=== PATIENT | male | born 1965 | race Caucasian/White ===

== ENCOUNTER 2020-07-09 09:50 | Emergency (ER) | payer BC ==
--- OUTSIDE RECORDS SUMMARY | 2020-07-09 09:53 | XMS REPORT | Continuity of Care Document ---
:1965 Author Organization [facility] [employer]is [employer] Care Team Providers Name Role Phone [facility] [employer]ASC[employer] Unavailable Un available Problems Problem Status Onset Classification Date Comments Sour e Date Reported R07.9 - "CHEST PAIN, Active OPID Kamilla UNSPECIFIED" R10.9 020 Syncope and collapse [place] [id number] City POSSIBLE STROKE Active [facility] [address] [place] [address] M25.561 - PAIN IN RIGHT Active OPID Kamilla KNEE 018 Rehab J98.09 - OTHER DISEASES Active OPID OF [place], NO 018 [place] 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 OPID Kamilla THYROID NODULE 015 648.10 - THYROID DYSFUN Active OPID Kamilla 015 Rehab 786.2/493.2 Active Kamilla 015 Hospital Adverse effect of Active Problem [place] otorhinolaryngological 8 Allergy & drugs and preparations, Asthma sequela Allergic rhinitis, Active Problem [place] unspecified 8 Allergy & Asthma Acute bronchitis due to Active Problem [place] other specified 8 Jatin rgy & organisms Asthma Cough Active Problem [place] d 8 Allergy & Asthma Foreign body in soft Active Problem [place] tissue 5 [facility] Pain Active Problem [place] [facility] Abscess/cellulitis-foot Active Problem [place] 5 [facility] Palpitations Isaac rial 9 City Generalized Memor ial hyperhidrosis 9 City Nausea Memoria l 9 City Dizziness and giddiness [facility] 9 City Pure Memoria l hypercholesterolemia, 9 City unspecified Allergy status to [facility] penicillin 9 City Allergy status to [facility] narcotic agent status 9 [facility] Medications Medication Details Route Status Patient Ordering Order Source Instructions Provider Date Sodium 1,000 mL, Inactive Chloride 0.9% 1000 019 [facility] ([place]) IV ml/hr, [facility] Infuse Over: 1 hr, Route: IV, 1,000, Drug form: INJ, ONCE, Priority: STAT, Dosing Weight 96.364 kg, Start date: 12/25/18 0:46:00 PRODUCTION TEAM MEMBER, Stop date: 12/25/18 0:46:00 PRODUCTION TEAM MEMBER Allergies, Adverse Reactions, Alerts Substance Category Reaction Severity Reaction Status Date Comments S ource type Reported codeine Assertion Drug Active OPI D allergy Kamilla penicillins Assertion Drug Active OPID allergy Kamilla Immunizations No Data Provided for This Section Results Order Name Results Value Reference Date Interpretation Comments Shannan rce Range CARDIAC Total CK 139 12 - 191 12/25 ENZYMES [facility] CARDIAC CK MB 1.4 0.5 - 3.6 12/25 ENZYMES [facility] CARDIAC Troponin-I <0.02 0.00 - 12/25 ENZYMES 0.40 /2018 [facility] CARDIAC CK MB Index 1.0 0.0 - 2.5 12/25 ENZYMES [facility] CHEM PANEL eGFR 56 12/25 Result Comment: The [facility] eGFR is City calculated using the CKD-EPI formula. In most young, healthy individuals the eGFR will be >90 mL/min/1.73m2 . The eGFR declines with age. An eGFR of 60-89 may be normal in some populations, particularly the elderly, for whom the CKD-EPI formula has not been extensively validated. Use of the eGFR is not recommended in the following populations:< br/>
Jennifer viduals with unstable creatinine concentration s, including patients and those with serious co-morbid conditions.<b r/>
Patie nts with extremes in muscle mass or diet.

The data above are obtained from the National Kidney Disease Education Program (NKDEP) which additionally recommends that when the eGFR is used in patients with extremes of body mass index for purposes of drug dosing, the eGFR should be multiplied by the estimated BMI. CHEM PANEL B/C Ratio 12 6 - 25 12/25 [facility] CHEM PANEL ALT 66 0 - 65 02/ [facility] CHEM PANEL Creatinine 1.43 0.50 - 02/04 MH Lvl 1.40 /2019 [facility] CHEM PANEL Glucose Lvl 117 70 - 99 02 [facility] CHEM PANEL BUN 17 7 - 22 02/ [facility] CHEM PANEL CO2 24 24 - 32 02/ [facility] CHEM PANEL Albumin Lvl 4.2 3.5 - 5.0 02 [facility] CHEM PANEL AGAP 14.3 10.0 - 02 20.0 [facility] CHEM PANEL Alk Phos 62 39 - 136 02 [facility] CHEM PANEL AST 33 0 - 37 02 [facility] CHEM PANEL A/G Ratio 1.2 0.7 - 1.6 12/25 [facility] CHEM PANEL Bili Total 0.6 0.2 - 1.3 12/25 [facility] CHEM PANEL Globulin 3.6 2.7 - 4.2 12/25 [facility] CHEM PANEL Total 7.8 6.4 - 8.4 12/25 [facility] CHEM PANEL Sodium Lvl 140 135 - 145 02 [facility] CHEM PANEL Chloride Lvl 106 95 - 109 02 [facility] CHEM PANEL Potassium 4.3 3.5 - 5.1 12/25 Lv [facility] CHEM PANEL Calcium Lvl 9.2 8.5 - 10.5 12/25 [facility] ELECTROLYTE Sodium Lvl 140 135 - 145 02 S [facility] ELECTROLYTE Potassium 4.3 3.5 - 5.1 02 S Lv [facility] ELECTROLYTE Chloride Lvl 106 95 - 109 02 S [facility] ELECTROLYTE Calcium Lvl 9.2 8.5 - 10.5 12/25 S [facility] ELECTROLYTE BUN 17 7 - 22 02/ S [facility] ELECTROLYTE CO2 24 24 - 32 02/ [facility] ELECTROLYTE Albumin Lvl 4.2 3.5 - 5.0 02 S [facility] ELECTROLYTE AGAP 14.3 10.0 - 02/04 S 20. [facility] ELECTROLYTE Glucose Lvl 117 70 - 99 02/ [facility] ELECTROLYTE AST 33 0 - 37 12/25 [facility] ELECTROLYTE Creatinine 1.43 0.50 - 02 MH S Lvl 1.40 /2018 [facility] ELECTROLYTE ALT 66 0 - 65 12/25 [facility] ELECTROLYTE B/C Ratio 12 6 - 25 12/25 [facility] ELECTROLYTE eGFR 56 12/25 Result Comment: The [facility] eGFR is City calculated using the CKD-EPI formula. In most young, healthy individuals the eGFR will be >90 mL/min/1.73m2 . The eGFR declines with age. An eGFR of 60-89 may be normal in some populations, particularly the elderly, for whom the CKD-EPI formula has not been extensively validated. Use of the eGFR is not recommended in the following populations:< br/>
Jennifer viduals with unstable creatinine concentration s, including patients and those with serious co-morbid conditions.<b r/>
Patie nts with extremes in muscle mass or diet.

The data above are obtained from the National Kidney Disease Education Program (NKDEP) which additionally recommends that when the eGFR is used in patients with extremes of body mass index for purposes of drug dosing, the eGFR should be multiplied by the estimated BMI. ELECTROLYTE Total 7.8 6.4 - 8.4 / MH S [facility] ELECTROLYTE Bili Total 0.6 0.2 - 1.3 12/25 [facility] ELECTROLYTE Globulin 3.6 2.7 - 4.2 12/25 [facility] ELECTROLYTE A/G Ratio 1.2 0.7 - 1.6 12/25 [facility] ELECTROLYTE Alk Phos 62 39 - 136 12/25 [facility] HEMATOLOGY MPV 7.7 7.4 - 10.4 12/25 [facility] HEMATOLOGY MCH 30.5 27.0 - 02/ MH 31.0 [facility] HEMATOLOGY MCHC 35.0 32.0 - 02/ MH 36.0 [facility] HEMATOLOGY RDW 13.2 11.5 - 02/ MH 14.5 [facility] HEMATOLOGY Platelet 209 133 - 450 12/25 [facility] HEMATOLOGY WBC 12.4 3.7 - 10.4 12/25 [facility] HEMATOLOGY RBC 5.43 4.70 - 02 MH 6.10 /2018 [facility] HEMATOLOGY Hgb 16.6 14.0 - 02 MH 18.0 /2018 [facility] HEMATOLOGY Hct 47.3 42.0 - 02 MH 54.0 /2018 [facility] HEMATOLOGY MCV 87.1 80.0 - 02 MH 94.0 /2018 [facility] HEMATOLOGY Lymphocytes 1.2 1.0 - 5.5 12/25 MH # /2019 [facility] HEMATOLOGY Monocytes # 0.5 0.0 - 0.8 12/25 [facility] HEMATOLOGY Basophils # 0.1 0.0 - 0.2 12/25 [facility] HEMATOLOGY Segs 85.4 45.0 - 02 MH 75.0 /2018 [facility] HEMATOLOGY Monocytes 4.0 2.0 - 12.0 12/25 [facility] HEMATOLOGY Eosinophils 0.2 0.0 - 4.0 12/25 [facility] HEMATOLOGY Basophils 0.4 0.0 - 1.0 12/25 [facility] HEMATOLOGY Neutrophils 10.6 1.5 - 8.1 12/25 # /2018 [facility] HEMATOLOGY Lymphocytes 10.0 20.0 - 12/25 MH 40.0 [facility] URINE AND UA Ketones Negative 12/25 STOOL [facility] URINE AND UA Spec Grav 1.023 <=1.030 12/25 STOOL /2018 [facility] URINE AND UA pH 5.0 5.0 - 8.0 12/25 STOOL /2018 [facility] URINE AND UA Protein Negative Negative 12/25 STOOL (12/25/18 12:30 AM) /2018 [facility] URINE AND UA Turbidity Clear Clear 12/25 STOOL (12/25/18 12:30 AM) /2018 [facility] URINE AND UA Glucose Negative Negative 12/25 STOOL *NA* /2018 [facility] (12/25/18 12:30 AM) [facility] URINE AND UA Bacteria Occasional None Seen 12/25 STOOL /HPF /HPF /2018 [facility] URINE AND UA WBC 3 0 - 5 12/25 STOOL /2018 [facility] URINE AND UA RBC 1 0 - 2 12/25 STOOL /2018 [facility] URINE AND UA Sq Epi Occasional Few /LPF 12/25 STOOL /LPF /2018 [facility] URINE AND UA Nitrite Negative Negative 12/25 STOOL (12/25/18 12:30 AM) [facility] URINE AND UA Bili Negative Negative 12/25 STOOL *NA* [facility] (12/25/18 12:30 AM) [facility] URINE AND UA Blood Small Negative 12/25 STOOL *ABN* /2018 [facility] (12/25/18 12:30 AM) [facility] URINE AND UA Leuk Est Negative Negative 12/25 STOOL (12/25/18 12:30 AM) [facility] URINE AND UA <=1.0 0.1 - 1.0 12/25 STOOL Urobilinogen mg/dL /2018 [facility] URINE AND UA Mucus Moderate None Seen 12/25 STOOL /LPF /LPF /2018 [facility] URINE AND UA Hyal Cast 18 0 - 2 12/25 STOOL /2018 [facility] URINE AND UA Color Yellow Yellow 12/25 STOOL *NA* /2018 [facility] (12/25/18 12:30 AM) [facility] Pathology Reports No Data Provided for This Section Diagnostic Reports Report Value Date Source Chest/Abd/Pel w IV Radiation Dose CTDIVOL = 0 (mGy): DLP = 1638.81 (mGy-cm) 05/21/2020 OPIHina Kamilla contrast/Abd wo CT PROCEDURE INFORMATION: Exam: CT Chest With Contrast Exam date and time: 05/21/2020 4:02 PM Age: 54 years old Clinical indication: Chest pain, unspecified; Un specified abdominal pain; Additional info: R07.9 r10.9/. TECHNIQUE: Imaging protocol: Computed tomography of the [address]ard st with intravenous contrast. Radiation optimization: All CT scans at this facility use at least one of these dose optimization techniques: automated exposure control; mA and/or kV adjustment per patient size (includes targeted e xams where dose is matched to clinical indication); or iterative reconstructio n. Contrast material: OMNI 300; Contrast volume: 10 0 ml; Contrast route: INTRAVENOUS (IV); Other contrast: Oral, OMNI 300, 50; COMPARISON: CHEST W CONTRAST CT 04/12/2019 9:45 AM RADIATION DOSE METRICS: Total DLP (mGy-cm): 1638.81 FINDINGS: Lungs: Emphysema with minor scarring. No mass or pneumonia. No bronchiectasis or endobronchial obstructing lesion. Pleural space: No pleural effusion. Heart: Heart normal. No pericardial effusion. Aorta: Aorta normal. Lymph nodes: No hilar, mediastinal or axillary a denopathy. Bones/joints: Unremarkable skeleton. Soft tissues: Unremarkable. PROCEDURE INFORMATION: Exam: CT Abdomen And Pelvis Without And With Con trast Exam date and time: 05/21/2020 4:02 PM Age: 54 years old Clinical indication: Chest pain, unspecified; Un specified abdominal pain; Additional info: R07.9 r10.9/. TECHNIQUE: Imaging protocol: Computed tomography of the abd omen and pelvis without and with intravenous contrast. Radiation optimization: All CT scans at this facility use at least one of these dose optimization techniques: automated exposure control; mA and/or kV adjustment per patient size (includes targeted e xams where dose is matched to clinical indication); or iterative reconstructio n. Contrast material: OMNI 300; Contrast volume: 10 0 ml; Contrast route: INTRAVENOUS (IV); Other contrast: Oral, OMNI 300, 50; COMPARISON: CT abdomen 04/24/2019 RADIATION DOSE METRICS: Total DLP (mGy-cm): 1638.81 FINDINGS: Liver: Mild fatty liver. Gallbladder and bile ducts: Gallbladder and comm on duct normal. Pancreas: Pancreas normal. Spleen: Spleen normal. Adrenals: Adrenals normal. Kidneys and ureters: No renal mass, calculus, hy dronephrosis or perinephric stranding. Stomach and bowel: Colonic diverticulosis. Moder ate colonic fecal material. Appendix: Appendix normal. Intraperitoneal space: No ascites. Vasculature: Unremarkable. Lymph nodes: No adenopathy. Bladder: Unremarkable urinary bladder. Reproductive: Enlarged prostate with bladder bas e impingement. Bones/joints: Minor spondylosis. Soft tissues: Small fat containing umbilical her juhi. Bilateral fat containing umbilical hernias. IMPRESSION: CT Chest With Contrast 1. No acute abnormality. 2. Emphysema with minor scarring. CT Abdomen And Pelvis Without And With Contrast 1. No acute abnormality. 2. Fatty liver. 3. Colonic diverticulosis, moderate colonic feca l material. 4. Enlarged prostate with bladder base impingeme nt. 5. Bilateral fat containing umbilical hernias. Darrin Luna MD On 05/23/2020 18:33:58; VR- [id number] Retroperitoneal Complete Addendum: 04/12/2019 MARISA Kohli US The tiny left renal cysts no roselia on this ultrasound correlates well with the small left renal cyst noted on today's CT. Frequently very small renal cysts found on CT are not visualized at ultrasound. I concur with the initial interpretation of this exam. PROCEDURE: RENAL ULTRASOUND INDICATION: Left flank pain. COMPARISON: None. TECHNIQUE: Sonographic evaluation of the kidneys and urinar y bladder was performed. FINDINGS: KIDNEYS: The right kidney measures 10.6 cm in length. Normal contour and parenchym al echogenicity. There is no hydronephrosis, nephrolithiasis, mass lesion or perinephric collection. The left kidney measures 10.7 cm in length. Normal contour and parenchym al echogenicity. There is no hydronephrosis, nephrolithiasis, mass lesion or perinephric collection. Small left renal cysts measuring 0.8 cm and 0.5 cm. BLADDER: Unremarkable. The prostate measures 4.2 x 3.8 x 3.7 cm. VASCULAR: The visualized abd ominal aorta, IVC and proximal common iliac arteries are within normal limits. IMPRESSION: 1. Tiny left renal cysts. Ot herwise unremarkable sonographic appearance of the kidneys. 2. Mildly enlarged prostate SL: [id number] Chest w contrast CT ADDENDUM: 04/12/2019 MARISA Kohli I have reviewed this examina tion and concur with the interpretation. The appearance clear lung bases on today's CT chest confirms that the appearance of the lung bases on 03/29/2019 CT abdomen were due to mild dependent a telectasis which is a common finding on CT is otherwise the chest or abdomen performed in the supine position. Chest CT with contrast: Multiplanar helical imaging was performed through the chest after IV injection 100 mL Omnipaque 300. HISTORY: Chest pain, short of breath. COMPARISON: Chest CT 06/01/2017. FINDINGS: Normal caliber tho racic aorta without an aneurysm. No mediastinal or hilar adenopathy. Limited images through the upper aspect of the abdomen are unremarkable. There is no central airway narro wing or displacement. Both l ungs are clear. No infiltrate, pleural effusion or pneumothorax. No lung mass or nodule. Bone window review shows no acute bony pathology . No vertebral compression. IMPRESSION: No acute finding SL: [id number] Abd Liver Protocol w/wo IV Addendum: 03/29/2019 OP ID Kamilla contrast CT The 03/29/2019. Postcontrast CT abdomen was reviewed. I feel the liver is normal in appearance without definitive evidence for hepatic steatosis on CT. In addition the subtle increased density dependent ly in both lower lobes is mo st likely related to very mild dependent atelectasis which is frequently seen on CTs performed with the patient in supine position. Otherwise I concur with the initial report. EXAM: CT abdomen liver protocol HISTORY: Elevated liver enzymes COMPARISON: CT 06/01/2017 TECHNIQUE: Axial images with out and with IV contrast. Sagittal coronal reformats. 100 mL Visipaque IV contrast and 900 mL water oral contrast. DLP 1756 CT imaging performed at this location utilizes radiation dose optimization techniques which include one or more of the following: -Automated exposure control -Adjustment of the mA and/or kV according to pat ient size -Use of iterative reconstruction technique FINDINGS: Liver: Mild-moderate fatty c hange. No appreciable cirrhosis or mass. The main portal vein measures 17 mm diameter. No portosystemic collateral vessels are seen. Spleen: Upper normal size. Pancreas: Unremarkable. Kidneys: Few tiny hypodensit ies in the left kidney. The right kidney is unremarkable. Adrenal glands: Unremarkable. Gallbladder: No appreciable gallstone. No biliar y dilation. Peritoneum and retroperitoneum: No enlarged lymp h nodes. No free fluid. Gastrointestinal tract: Smal l hiatal hernia. Diverticula descending colon without diverticulitis. Tiny fat-containing umbilical hernia. Other: Stable subpleural mil d interstitial groundglass opacities posterior lower lungs. Generalized osteopenia. Mild spondylosis thoracolumbar spine. IMPRESSION: 1. Fatty liver with mild portal hypertension. 2. Several small lesions lef t kidney may be cysts. Renal ultrasound can confirm. 3. Possible scarring or an interstitial pneumoni a lower lungs, stable. SL 16 Thyroid US Clinical Indication: E04.1 Nontoxic si ngle thyroid nodule - .. 02/26/2019 ANGELICD Kamilla Comparison: 06/01/2017. TECHNIQUE: Multiplanar nina chanelle and color Doppler ultrasound of the neck were obtained in the area of the thyroid. FINDINGS: Thyroid parenchyma: Mildly heterogeneous Size: Right thyroid: 4.8 x 2.1 x 2 cm Left thyroid: 5 x 1.8 x 1.6 cm Isthmus thickness: 0.3 cm Thyroid nodules: There are s ub-5 mm cyst of the thyroid and a 5 mm calcification which are unchanged from previous exam and do not meet imaging criteria for consideration of follow-up or biopsy. Cervical lymph nodes: Normal. IMPRESSION: 1. Mildly heterogeneous gland 2. Thyroid nodule(s) detailed above do(es) not meet MILLY criteria for FNA. REFERENCE: Pedro MONTOYA et al. 2015 [place] Thyroid Association Management Guidelines for Adult Patients with Thyroid Nodules and Differentiated Thyroid Cancer. Thyroid. 2016; 26(1):1-133. SL: ECROBERT Chest 2 views DX PA and lateral views chest 12/25/2018 [facility] INDICATION: Syncope COMPARISON: none FINDINGS: Heart/mediastinum: normal LUNGS: clear without infiltrate or effusion Bone structures: There are postoperative finding s of the cervical spine. Upper abdomen: unremarkable Incidental findings: none IMPRESSION: Normal chest radiographs. Brain wo contrast CT Brain wo contrast CT 12/24/2018 9:01 PM PRODUCTION TEAM MEMBER 0 12/24/2018 [facility] Clinical Indication: - syncope; COMPARISON: None TECHNIQUE: Axial CT images o f the brain are obtained from the skull base to the vertex. Axial, sagittal, and coronal images are interpreted. Contrast: No IV contrast. DLP: 683 mGy-cm. This exam w as performed according to our departmental dose- optimization protocol, which includes automated exposure control, adjustment of the mA and/or kV according to patient size and/or use of iterative reconstruction technique. FINDINGS: BRAIN: There is no evidence of cerebral edema, mass, mass effect, hemorrhage, recent cortical infarct. The brain volume is age appropriate. The olivo-white distinction is maintained. SKULL: No skull abnormality is seen. VENTRICLES: The ventricles are normal in size an d configuration. ORBITS, VISUALIZED PARANASAL SINUSES AND MASTOIDS: Mild mucosal thickening in the sphenoid sinus and bilateral ethmoid sinus is consistent with sinusitis. The remainder of the visualized paranasal sinus es appear unremarkable. The mastoid air cells are clear. No orbital pathology is seen. IMPRESSION: 1. No acute intracranial abnormality identified. 2. Mild mucosal thickening i n sphenoid sinus and bilateral ethmoid sinus is consistent with sinusitis. Otherwise unremarkable examination. Chest/Abd/Pelvis w/wo IV CT CHEST ABDOMEN AND PELVIS WITH CONTRA ST 06/01/[address] ABDOMEN AND PELVIS WITHOUT CONTRAST. Clinical Indication: Mid and right chest pain and right upper and lower quadrant abdominal pelvic pain for 2 years. Shortness of breath. Comparison: 09/10/2015 CT abdomen pelvis. [address] TECHNIQUE: Helical imaging w as performed from the T1/ lung apices through the pubic symphysis with multiplanar reconstructions. IV CONTRAST: 100 mL Omnipaque 300 GI CONTRAST: 900 mL 5% Omnipaque DLP: 1325 mGy-cm FINDINGS: CHEST: MEDIASTINUM: No mediastinal lymphadenopathy. Trachea and mainstem bronchi are free of masses. Tiny hiatal hernia suspected. HEART AND AORTA: Heart is no rmal in size without pericardial effusion. Thoracic aorta is normal in caliber. LUNGS AND PLEURA: Minimal de pendent changes likely represent atelectasis. Lungs are otherwise clear. No pleural effusions. MUSCULOSKELETAL: No suspicious osseous abnormali ties. ABDOMEN: PERITONEUM: No free intraperitoneal air or fluid . RETROPERITONEUM: Abdominal a frederick is normal in caliber. Subcentimeter short axis lymph nodes present. SOLID ORGANS: The liver, gal lbladder, spleen, pancreas, adrenal glands and kidneys are normal. PELVIS: Bladder is filled with fluid. Prostate m easures 5.3 cm diameter. BOWEL: No abnormally dilated small or large bowel loops. Diverticulosis present. Appendix is normal. MUSCULOSKELETAL: Fat-contain ing inguinal hernias, right greater than left. Fat- containing umbilical hernia. Mild deformity of right iliac bone likely from old fracture and stable. IMPRESSION: 1. No acute findings in the chest, abdomen, or p pb. 2. Diverticulosis. 3. Prominent prostate gland. 4. Tiny hiatal hernia. 5. Fat-containing umbilical hernia and bilateral inguinal hernias. SL: [id number] Thyroid US PROCEDURE: 06/01/2017 MARISA Kohli Thyroid ultrasound. INDICATION: E04.1 Nontoxic single thyroid nodu le. Stomach pain. COMPARISON: Thyroid ultrasound dated 09/04/2015. TECHNIQUE: Sonographic evalu ation of the thyroid gland is performed using high resolution B-mode and supplemental Doppler imaging. FINDINGS: The isthmus measures 3 mm in thickness at the mi dline. Hypoechoic cyst within the l eft lobe measures 4 mm x 4 mm x 2 mm. This appears new. Cyst identified within the m idline isthmus measures 4 mm x 3 mm x 2 mm. This previously measured 5 mm x 4 mm x 2 mm in August 2015. The right lobe measures 4.6 cm x 2.4 cm x 2.1 cm . The left lobe measures 5.0 cm x 1.9 cm x 1.6 cm. Heterogeneous echogenic nodu le within the posterior superior left lobe measures 6 mm x 5 mm x 4 mm. This previously measured 5 mm x 5 mm x 5 mm in August 2015. IMPRESSION: 1. Stable uninodular goiter. No dominant nodule . 2. Cyst within the thyroid isthmus. SL: [id number] Abdomen/Pelvis w/wo IV PROCEDURE: CT ABDOMEN AND PE LVIS WITH AND WITHOUT CONTRAST 09/10/2015 JOSE J Kohli [facility] contrast CT INDICATION: Inguinal adenopa thy. Acute lymphadenitis. Painful right side groin. COMPARISON: None. TECHNIQUE: Helical imaging w as performed from the diaphragm through the pubic symphysis with multiplanar reconstruction. Imaging was performed with and without the administration of IV contrast. Intravenous contrast: 100ml Omnipaque 300 Oral contrast: Omnipaque 50 cc was utilized for a portion of the oral contrast. FINDINGS: LOWER CHEST: Atelectasis seen in the lung bases. SOLID ORGANS: The liver, gal lbladder, spleen, pancreas, adrenal glands and kidneys are normal. BOWEL: A few colonic diverti cula present. Appendix is visualized and appears normal. No inflammatory changes of the GI tract seen. PERITONEUM: No free intraperitoneal fluid or air . RETROPERITONEUM: No adenopathy. The aorta is nor mal. PELVIS: No pelvic mass. The urinary bladder is normal. There are small nonspecific bilateral inguinal and pelvic lymph nodes. No dominant lymph node seen. MUSCULOSKELETAL: The skeleton is intact. IMPRESSION: 1. No acute findings identified. 2. No adenopathy seen. A few nonspecific small bilateral inguinal and pelvic lymph nodes present. 3. Several colonic diverticula present. SL: 03 Thyroid US PROCEDURE: THYROID ULTRASOUND 09/04/2015 JOSE J Kohli INDICATION: Thyroid goiter. Thyroid nodules. COMPARISON: 01/18/2014 TECHNIQUE: Sonographic evalu ation of the thyroid gland was performed using high resolution B-mode and supplemental Doppler imaging. FINDINGS: The right lobe measures 4.9 x 2.6 x 2.2 cm. The left lobe measures 5.2 x 2.2 x 1.7 cm. The isthmus is normal. The right and left lobes are normal in contour a nd echogenicity. 0.5 x 0.5 x 0.5 cm echogenic area in the inferior left thyroid is unchanged. Small cystic area is identified superior to the isthmus which are unchanged. IMPRESSION: Unchanged appearance of uninodular t hyroid SL 03 Consultation Notes No Data Provided for This Section Discharge Summaries No Data Provided for This Section History and Physicals No Data Provided for This Section Vital Signs Vital Sign Value Date Comments Source Temperature Oral (F) 98.2 F 12/25/2018 [facility] Heart Rate 88 12/25/2018 [facility] Respitory Rate 16 12/25/2018 [facility]y Systolic (mm Hg) 119 12/25/2018 [facility] Diastolic (mm Hg) 79 12/25/2018 [facility] Heart Rate 81 12/25/2018 [facility] Systolic (mm Hg) 106 12/25/2018 [facility] Diastolic (mm Hg) 64 12/25/2018 [facility] Respitory Rate 18 12/25/2018 [facility] C [facility]y Systolic (mm Hg) 111 12/25/2018 [facility] Diastolic (mm Hg) 71 12/25/2018 [facility] Heart Rate 87 12/25/2018 [facility] Respitory Rate 18 12/25/2018 [facility] ity Weight 96.364 12/25/2018 [facility] Temperature Oral (F) 99.5 F 12/25/2018 [facility] Height 185.42 cm 01/02/2015 [facility] BMI Calculated 31.07 01/02/2015 [facility] Weight 106.818 01/02/2015 [facility] Encounters Location Location Encounter Encounter Reason Attending ADM DC Stat us Source Details Type Number For Provider Date Date Visit [facility] Outpt Diag [id number] Consuelo Garcia 01/01 01/02 [facility]2014 [facility] Outpatient [id number] Consuelo Garcia 01/02 01/03 [facility] Esipnoza /2014 [facility] PT: [id number] 05/19 05/19 [facility] [id number] /2014 [facility] [id number] P [facility]diatry [facility] [place] [facility] RT FT & [id number] 05/20 05/20 [facility] KNEE [id number] /2014 [facility] SCHEDULED [id number] Podiatry [facility] Outpt Diag [id number] [facility] 09/04 09/05 [facility] [id number] [facility] 06/01 06/02 [facility] [id number] [facility] 07/10 07/10 [facility] [id number] [facility] 12/25 12/25 [facility] [id number] [facility] 02/26 02/27 [facility] [id number] [facility] 03/29 03/30 [facility] [id number] [facility] 04/12 04/13 [facility] [id number] [facility] 05/21 05/22 [facility] Procedures No Data Provided for This Section Assessment and Plan No Data Provided for This Section Plan of Care No Data Provided for This Section Social History Social History Date Source Social History TypeResponse 12/25/2018 [facility] Alcohol Current, Type Wine. Frequency: 1-2 times per month. Smoking Status Never smoker; Exposure to Tobacco Smoke None; Cigarette Smoking Last 365 Days No; Reg Smoking Cessation Counseling No entered on: 12/25/18 Social History TypeResponse 12/25/2018 [facility] Alcohol Current, Type Wine. Frequency: 1-2 times per month. Smoking Status Never smoker; Exposure to Tobacco Smoke None; Cigarette Smoking Last 365 Days No; Reg Smoking Cessation Counseling No entered on: 12/25/18 Social History TypeResponse 12/25/2018 [facility] Alcohol Current, Type Wine. Frequency: 1-2 times per month. Smoking Status Never smoker; Exposure to Tobacco Smoke None; Cigarette Smoking Last 365 Days No; Reg Smoking Cessation Counseling No entered on: 12/25/18 Social History ElementQualifiersDate Reported 05/19/2015 [facility] Tobacco Use: . Are you a:: never smoker May 19, 2015 Family History No Data Provided for This Section Advance Directives No Data Provided for This Section Functional Status No Data Provided for This Section
--- OUTSIDE RECORDS SUMMARY | 2020-07-09 09:53 | XMS REPORT | Clinical Summary ---
:1965 Author Organization [facility] Address [address] [place] [address] Care Team Providers Name Role Phone Adriano Martin MD Primary Care Provider Allergies Active Allergy Reactions Severity Noted Date Comments Codeine Rash Low 09/17/2019 Medications Medication Sig Dispensed Refills Start Date End Date Status tiZANidine (ZANAFLEX) Take 2 mg by 0 09/05/2019 Active 2 MG tablet mouth 3 (three) times a day. metoclopramide Take 1 tablet 30 tablet 0 11/13/2019 12/13/2019 (REGLAN) 10 MG tablet (10 mg total) by mouth every 6 (six) hours for 30 days. keTOROlac (TORadol) 10 Take 1 tablet 20 tablet 0 11/13/2019 mg tablet (10 mg total) by mouth every 6 (six) hours as needed for moderate pain for up to 5 days. 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 kevin 10/04/2019 Lumbar radiculopathy 09/17/2019 Acute right-sided low back pain without sciatica 09/17 Encounters Date Type Specialty Care Team Description 11/12/2019 - Emergency Emergency Medicine Laurent, Dizziness after extension of neck (Primary Dx); 11/13/2019 Humphrey Chronic left-si ded headaches; DO Ciro Near syncope 10/04/2019 Office Visit Orthopedic Surgery Lor, Acute rig ht-sided low back pain without sciatica (Primary Dx); Darrin Torres III, Herniation o f lumbar intervertebral disc with radiculopathy 09/26/2019 Documentation Orthopedic Surgery Darrin Horowitz III, MD 09/21/2019 Telephone Orthopedic Surgery Julianne Leija RN 09/20/2019 Office Visit Orthopedic Surgery Lor, Acute rig ht-sided low back pain without sciatica (Primary Dx); Darrin Torres III Lumbar radic ulopathy 09/20/2019 Documentation Orthopedic Surgery Yesenia Salinas MA 09/18/2019 Hospital Encounter Radiology Lor, Lumbar ra diculopathy Darrin Torres III, MD 09/17/2019 Office Visit Orthopedic Surgery Beto Bob, Acute rig ht-sided low back pain without sciatica (Primary Dx); Artur Pérez MD Lumbar radiculopathy Darrin Horowitz III, MD after 07/09/2019 Family History Medical History Relation Name Comments Cancer Mother slim phillip breast Cancer Paternal Grandfather RIA colon Relation Name Status Comments Mother slim phillip Paternal Grandfather RIA Social History Tobacco Use Types Packs/Day Years Used Date Never Smoker 0 0 Smokeless Tobacco: Never Used Alcohol Use Drinks/Week oz/Week Comments Not Currently Sex Assigned at Date Recorded Male 09/14/2019 2:28 PM CDT Job Start Date Occupation Industry Not on file Not on file Not on file Travel History Travel Start Travel End No recent travel history available. Last Filed Vital Signs Vital Sign Reading Time Taken Comments Blood Pressure 112/80 11/13/2019 12:45 [facility] Pulse 74 11/13/2019 12:45 [facility] Temperature 36.5 C (97.7 F) 11/12/2019 10:08 PM [facility] Respiratory Rate 18 11/13/2019 12:45 AM [facility] Oxygen Saturation 97% 11/13/2019 12:45 AM [facility] Inhaled Oxygen Concentration - - Weight 99.8 kg (220 lb) 10/04/2019 1:52 PM [facility] Height 180.3 cm (5' 11") 11/12/2019 10:01 PM [facility] Body Mass Index 30.68 10/04/2019 1:52 PM [facility] Plan of Treatment Health Maintenance Due Date Last Done Comments COLONOSCOPY SCREENING 2016 SHINGLES VACCINES (#1) 2016 INFLUENZA VACCINE 07/22/2020 Procedures Procedure Name Priority Date/Time Associated Diagnosis Comme nts ECG ED PRELIMINARY Routine 11/13/2019 2:06 Resul ts for this INTERPRETATION [facility] procedure are in the results section. CT ANGIOGRAM HEAD W WO STAT 11/13/2019 1:40 R esults for this CONTRAST [facility] procedure are i n the results section. CT ANGIOGRAM NECK W WO STAT 11/13/2019 1:40 R esults for this CONTRAST [facility] procedure are i n the results section. ESTIMATED GFR STAT 11/13/2019 12:15 Results fo r this AM [facility] procedure are i n the results section. CREATINE KINASE, TOTAL STAT 11/13/2019 12:15 R esults for this (CPK) AM [facility] procedure are i n the results section. LACTIC ACID LEVEL, STAT 11/13/2019 12:15 Resul ts for this SEPSIS - NOW AND AM [facility] procedure a re in REPEAT 2X EVERY 3 the result s HOURS section. COMPREHENSIVE STAT 11/13/2019 12:15 Results fo r this METABOLIC PANEL [facility] procedure ar e in the results section. PARTIAL THROMBOPLASTIN STAT 11/13/2019 12:15 R esults for this TIME (PTT) AM [facility] procedure are i n the results section. PROTHROMBIN TIME WITH STAT 11/13/2019 12:15 Re sults for this INR AM [facility] procedure are i n the results section. HC COMPLETE BLD COUNT STAT 11/13/2019 12:15 Re sults for this W/AUTO DIFF [facility] procedure are i n the results section. ECG 12-LEAD STAT 11/12/2019 10:12 Results for this PM [facility] procedure are i n the results section. TN INJECT TRIGGER Routine 09/20/2019 10:30 Acute right-sided l ow Results for this POINT, 1 OR 2 AM CDT back pain without procedure are in sciatica the results section. MRI LUMBAR SPINE WO Routine 09/18/2019 11:42 Lumbar radiculopa thy Results for this CONTRAST AM CDT procedure are i n the results section. XR LUMBAR SPINE Routine 09/17/2019 2:31 Acute right-sided low Results for this COMPLETE 4+ VW PM CDT back pain without procedur e are in sciatica the results section. after 07/09/2019 Results ECG ED Preliminary Interpretation - Not an Order (11/13/2019 2:06 AM [facility]) Narrative Performed At Humphrey Mancilla DO 11/13 6:43 AM ECG ED Preliminary Interpretation - Not an Order Performed by: Humphrey Mancilla DO Authorized by: Humphrey Mancilla DO ECG reviewed by ED Physician in the abse nce of a back seam stitcher: yes Interpretation: Interpretation: normal Rate: ECG rate: 76 ECG rate assessment: normal Rhythm: Rhythm: sinus rhythm QRS: QRS axis: Normal QRS intervals: Normal ST segments: ST segments: Normal T waves: T waves: normal CTA Head W Wo Contrast (11/13/2019 1:40 AM [facility]) Specimen Narrative Performed At EXAM: CT ANGIOGRAM HEAD W WO CONTRAST [facility] CLINICAL HISTORY: dizziness reported left carotid di ssection on outside study TECHNIQUE: Imaging of the intracranial circulation w as obtained from the skull base to the vertex during the arterial phase of enhancement. Postprocessing was performed with MIP multiplanar and 3D reconstructed images. CT scans are performed using radiation dose reduction techniques. Technical factors are evaluated and adjusted to ensure appropriate moderation of exposure. Automated dose case management social worker nology is applied to adjust radiation exposure while achie ving a diagnostic quality image. COMPARISON: None FINDINGS: No hemodynamically significant stenosis is identified of the intracranial internal carotid arteries, middle cerebra l arteries, anterior cerebral arteries, intracranial vertebral art eries, basilar artery or posterior cerebral arteries. T here is no aneurysmal dilatation or vascular malfor mation of the tolowa dee-ni' of [place]. The major dural sinuses are opacified no rmally. There are no gross brain parenchymal abnormalities. Th ere is no midline shift, hydrocephalus or extra-axial flui d collection. Soft tissue shows no evidence of lacerat ion or hematoma. Postsurgical changes to the ethmoidal air cells noted. Mild mucosal thickening seen within the right maxillary sinus and t o a lesser extent within the remaining sinuses. There is no air-fluid le roderick in the sinuses. Osseous calvarium is intact. IMPRESSION: 1.No hemodynamically significant narrowing of the circ le of [place] vessels. [facility]-[id number] Procedure Note Interface, Radiology Results Incoming - 11/13/2019 1:50 AM [facility] EXAM: CT ANGIOGRAM HEAD W WO CONTRAST CLINICAL HISTORY: dizziness reported le ft carotid dissection on outside study TECHNIQUE: Imaging of the intracranial circulation was obtained from the skull base to the vertex during the arterial phase of enhancement. Postprocessing was performed with MIP multiplanar and 3D reconstructed images. CT scans are performed using radiation d ose reduction techniques. Technical factors are evaluated and adjusted to ensure appropriate moderation of exposure. Automated dose management technology is applied to adjust radiation exposure while achievin g a diagnostic quality image. COMPARISON: None FINDINGS: No hemodynamically significant stenosis is identified of the intracranial internal carotid arteries, middle cerebral arteries, anterior cerebral arteries, intracranial vertebral arteries, basilar artery or posterior cerebral arteries. There is no aneurysmal dilatation or vascular malfor mation of the [place] de[place]. The major dural sinuses are opacified no rmally. There are no gross brain parenchymal abn ormalities. There is no midline shift, hydrocephalus or extra-axial fluid collection. Soft tissue shows no evidence of lacerat ion or hematoma. Postsurgical changes to the ethmoidal ai r cells noted. Mild mucosal thickening seen within the right maxillary sinus and to a lesser extent within the remaining sinuses. There is no air-fluid level in the sinuses. Osseous calvarium is intact. IMPRESSION: 1.No hemodynamically significant narrowi ng of the [place] de[place]ni' of [place] vessels. [facility]-[id number] Performing Organization Address City/State/Zipcode Phone Number [facility] [address] [place] [address] CTA Neck W Wo Contrast (11/13/2019 1:40 AM [facility]) Specimen Narrative Performed At EXAM: CT ANGIOGRAM NECK W WO CONTRAST [facility] CLINICAL HISTORY: dizziness reported left carotid di ssection on outside US TECHNIQUE: Imaging of the cervical circulation was obt ained from the upper thorax to the skull base during the arterial pha se of enhancement. Postprocessing was performed with MIP multiplanar and 3D reconstructed images. CT scans are performed using radiation dose reduction techniques. Technical factors are evaluated and adjusted to ensure appropriate moderation of exposure. Automated dose case management social worker nology is applied to adjust radiation exposure while achie ving a diagnostic quality image. COMPARISON: None FINDINGS: The common carotid arteries, carotid bulbs, internal c arotid arteries and external carotid arteries are opacified with 0% st enosis by NASCET criteria. Left cervical ICA is tortuous. The vertebral arteries are patent throughout the visua lized cervical segments without significant stenosis. The vertebral arteries are roughly codom inant. Visualized soft tissues shows no mass, a denopathy or fluid collection. No large, irregular thyroid nodule or ma ss is present. Lung apices are without evidence of focal consolidatio n or suspicious pulmonary nodule. Visualized osseous structures shows no acute fracture or dislocation. C5-C6 anterior interbody fusion noted. Straightening o f cervical lordotic curvature is noted, likely seco ndary to patient positioning. IMPRESSION: 1.No hemodynamically significant narrowing of the cerv ical vessels by NASCET criteria. [facility]-[id number] Procedure Note Interface, Radiology Results Incoming - 11/13/2019 1:53 AM [facility] EXAM: CT ANGIOGRAM NECK W WO CONTRAST CLINICAL HISTORY: dizziness reported le ft carotid dissection on outside US TECHNIQUE: Imaging of the cervical circu lation was obtained from the upper thorax to the skull base during the arterial phase of enhancement. Postprocessing was performed with MIP multiplanar and 3D reconstructed images. CT scans are performed using radiation d ose reduction techniques. Technical factors are evaluated and adjusted to ensure appropriate moderation of exposure. Automated dose management technology is applied to adjust radiation exposure while achievin g a diagnostic quality image. COMPARISON: None FINDINGS: The common carotid arteries, carotid bul bs, internal carotid arteries and external carotid arteries are opacified with 0% stenosis by NASCET criteria. Left cervical ICA is tortuous. The vertebral arteries are patent throug hout the visualized cervical segments without significant stenosis. The vertebral arteries are roughly codom inant. Visualized soft tissues shows no mass, a denopathy or fluid collection. No large, irregular thyroid nodule or ma ss is present. Lung apices are without evidence of foca l consolidation or suspicious pulmonary nodule. Visualized osseous structures shows no a cute fracture or dislocation. C5-C6 anterior interbody fusion noted. Straightening of cervical lordotic curvature is noted, likely secondary to patient positioning. IMPRESSION: 1.No hemodynamically significant narrowi ng of the cervical vessels by NASCET criteria. [facility]-[id number] Performing Organization Address City/[facility] Cent[facility]ode Phone Number [facility] [address] [place] [address] Estimated GFR (11/13/2019 12:15 AM [facility]) Estimated GFR 71 mL/min/1.73 [facility] ZOROASTRIAN Comment: m2 HOSPITAL Catergory Units Interpretation G1 >=90 Normal or high G2 60-89 Mildly decreased G3a 45-59 Mildly to moderately decreas ed G3b 30-44 Moderately to severely decre ased G4 15-29 Severely decreased G5 <15 Kidney failure The eGFR was calculated using the Chronic Kidney Disea se Epidemiology Collaboration (CKD-EPI) equation. Interpretation is based on recommendations of the National Kidney Foundation-Kidney Disease Outcomes Arun lity Initiative (NKF-KDOQI) published in 2014. Specimen Plasma specimen Performing Organization Address City/[facility]/Zipcode Phone Number [facility] DEPARTMENT OF PATHOLOGY AND [address], [place] [address] [address] Lactic acid level, SEPSIS - Now and repeat 2x every 3 hours (11/13/2019 12:15 AM [facility]) Pathologist Sig nature Lactic acid 1.2 0.5 - 2.2 mmol/L [facility] Specimen Plasma specimen Performing Organization Address City/[facility] Centercode Phone Number [facility] DEPARTMENT OF PATHOLOGY AND [address] [place] [address] [place] [address] Partial thromboplastin time, activated (11/13/2019 12:15 AM [facility]) PTT 27.8 23.0 - 36.0 [facility] Comment: [facility] PTT therapeutic range for unfractionated heparin is 61.0-112.0 seconds which corresponds to Anti-Xa 0.3-0.7 U/ml. Specimen Blood Performing Organization Address [facility] Phone Number [facility] DEPARTMENT OF PATHOLOGY AND [address] [place] [address] [place] [phone] Prothrombin time with INR (11/13/2019 12:15 AM [facility]) Pathologist [facility] Prothrombin time 11.7 11.5 - 14.5 [facility] INR 0.9 [facility] Comment: YEVGENIY Mccracken International Normalized Ratio (INR) is a therapeu [facility] monitoring tool for patients who are stable on oral anticoagulant therapy. An INR of 2.0-3.0 is suggested for deep vein thrombosis/pulmonary embolism. Specimen Blood Performing Organization Address City/[facility] Cent[facility]ode Phone Number [facility] DEPARTMENT OF PATHOLOGY AND [address] [place] [address] [place] [phone] CBC with platelet and differential (11/13/2019 12:15 AM [facility]) WBC 7.69 4.50 - 11.00 [facility] RBC 5.06 4.40 - 6.00 [facility] HGB 14.9 14.0 - 18.0 [facility] g/dL [facility] HCT 43.7 41.0 - 51.0 % [facility] MCV 86.4 82.0 - 100.0 [facility] MCH 29.4 27.0 - 34.0 pg [facility] MCHC 34.1 31.0 - 37.0 [facility] g/dL HOSPITAL RDW - SD 40.5 37.0 - 55.0 fL [facility] MPV 9.4 8.8 - 13.2 [facility] Platelet count 283 150 - 400 k/uL [facility] Nucleated RBC 0.00 /100 WBC [facility] Neutrophils 48.4 39.0 - 69.0 % [facility] Lymphocytes 36.4 25.0 - 45.0 % [facility] Monocytes 9.2 0.0 - 10.0 % [facility] Eosinophils 3.9 0.0 - 5.0 % [facility] Basophils 1.2 (H) 0.0 - 1.0 % [facility] Immature granulocytes 0.9Comment: 0.0 - 1.0 % [facility] "[facility] granulocytes" (promyelocytes , myelocytes, metamyelocytes ) Specimen Blood Performing Organization Address City/[facility] Phone Number [facility] DEPARTMENT OF PATHOLOGY AND [address] [place] [address] [phone] [address] Creatine kinase, total (CPK) (11/13/2019 12:15 AM [facility]) Pathologist Sig nature Creatine kinase 85 39 - 308 U/L [facility] L Specimen Plasma specimen Performing Organization Address City/[facility] Phone Number [facility] DEPARTMENT OF PATHOLOGY AND [address] [place] [address] [phone] [address] Comprehensive metabolic panel (11/13/2019 12:15 AM [facility]) Pathologist [facility] Sodium 138 135 - 148 [facility] mEq/L [facility] Potassium 4.1 3.5 - 5.0 [facility] mEq/L [facility] Chloride 100 98 - 112 mEq/L [facility] CO2 23 (L) 24 - 31 mEq/L [facility] Anion gap 15@ANIO 7 - 15 mEq/L [facility] BUN 26 (H) 6 - 20 mg/dL [facility] Creatinine 1.16 0.70 - 1.20 [facility]/dL HOSPITAL Glucose 96 65 - 99 mg/dL [facility] Calcium 9.9 8.3 - 10.2 [facility] mg/dL [facility] Protein 7.4 6.3 - 8.3 g/dL [facility] Comment: HOSPITAL Vixrhat0853.6-7.0 g/dL 1 hykt3503.4-7.6 g/dL 7 months-0kxtd598.1-7.3 g/dL 1-2 dtulj908.6-7.5 g/dL >3 zcycs085.0-8.0 g/dL 18-5213658.3-8.3 g/dL Albumin 3.8 3.5 - 5.0 g/dL [facility] A/G ratio 1.1 0.7 - 3.8 [facility] Alkaline phosphatase 92 40 - 129 U/L [facility] AST 70 (H) 10 - 50 U/L [facility] ALT 107 (H) 5 - 50 U/L [facility] Total bilirubin 0.5 0.0 - 1.2 [facility] mg/dL HOSPITAL Specimen Plasma specimen Performing Organization Address City/[facility] Centercode Phone Number [facility] DEPARTMENT OF PATHOLOGY AND [address] [place] [phone] [facility]OM[facility] MEDIC[facility] [address] [address] ECG 12 lead (11/12/2019 10:12 PM [facility]) Pathologist Sig nature Ventricular rate 76 [facility] Atrial rate 76 [facility] TN interval 140 [facility] QRSD interval 88 [facility] QT interval 376 [facility] QTC interval 423 [facility] P axis 1 34 [facility] QRS axis 1 32 [facility] T wave axis 30 [facility] EKG impression Normal sinus [facility] MUSE rhythm-Normal ECG-No previous ECGs available-Electronicall y Signed By Burt ZIMMERMAN, Raul Crow ([id number]) on 11/13/2019 7:57:23 AM Specimen Narrative Performed At This result has an attachment that is no t available. Performing Organization Address City/[facility] Centercode Phone Number [address] [phone] 1 or 2 Trigger Point Injection: R lumbar (09/20/2019 10:30 AM CDT) Narrative Performed At Darrin Horowitz III, MD 2018 3:49 PM 1 or 2 Trigger Point Injection: R lumbar Date/Time: 09/20/2019 3:48 PM Performed by: Darrin Horowitz III, M D Authorized by: Darrin Horowitz III, MD Consent: Consent obtained: Verbal Consent given by: Patient Indications: Indications: Pain relief Location: Therapeutic Trigger Point Injection: Single/multi ple trigger point(s): 1-2 muscle groups Location: back Back location injected: R lumbar Platelet Rich Plasma Used: no PRP Use d EMG Guidance Used: no emg guidance used Right side: Right Lumbar Medications administered: 0.5 mL lidocain e 10 mg/mL (1 %); 1 mL lidocaine 10 mg/mL (1 %); 3 mg betamethasone acetat e & sodium phosphate 6 mg/mL; 6 mg betamethasone acetate & so dium phosphate 6 mg/mL Pre-procedure details: Neurovascular status: intact Skin preparation: Alcohol Procedure details: Syringe type: Luer lock syringe Needle gauge: 25 G Post-procedure details: Patient tolerance of procedure: Iram erated well, no immediate complications MRI Lumbar Spine Wo Contrast (09/18/2019 11:42 AM CDT) Specimen Narrative Performed At This result has an attachment that is no t available. EXAMINATION: MRI LUMBAR SPINE WO CONTRAST [facility] CLINICAL HISTORY: M54.16 Radiculopathy lumbar region, Radiculopathy 6wks no red flags no prior management COMPARISON: None. TECHNIQUE: Multiplanar MRI imaging IV Gadolinium was performed. FINDINGS: There is normal lumbar lordosis and alig nment. Vertebral bodies are preserved. Bone marrow is unremarkable with no evidence of acute fracture or suspicious marrow-replacing lesion. Intervertebral disc s paces are relatively preserved. The distal spinal cord appears unremarkable. The conus med ullaris terminates at the L1-L2 level and appears unremarkable. The cauda equina is unremarkable. L1-2: Unremarkable L2-3: Minimal disc bulge with left saw inal and extraforaminal shallow disc protrusion and annular fissure contacting and possibly irritating the exiting left L2 nerve root. The right foramen is patent. There is no canal stenosis. L3-4: Diffuse disc bulge with superimpos ed right foraminal and extraforaminal disc protrusion with the potential compromise of the exiting right L3 nerve root. There is no canal stenosis. The left foramen is patent. L4-5: Diffuse disc bulge with bilateral facet arthropathy. No canal stenosis or foraminal narrowing. L5-S1: Unremarkable. Visualized paraspinal soft tissues are unremarkable. IMPRESSION: Right foraminal and extraforaminal large disc protrusion at L3-L4 level with compromise of the exiting right L3 nerve root. [id number] Procedure Note Hm Interface, Radiology Results Incoming - 09/18/2019 4:17 PM CDT EXAMINATION: MRI LUMBAR SPINE WO CONTRAST CLINICAL HISTORY: M54.16 Radiculopathy lumbar region, Radiculopathy 6wks no red flags no prior management COMPARISON: None. TECHNIQUE: Multiplanar MRI imaging IV Gadolinium wa s performed. FINDINGS: There is normal lumbar lordosis and alig nment. Vertebral bodies are preserved. Bone marrow is unremarkable with no evidence of acute fracture or suspicious marrow-replacing lesion. Intervertebral disc spaces are relatively preserved. The distal spinal cord appears unremarkable. The conus med ullaris terminates at the L1-L2 level and appears unremarkable. The cauda equina is unremarkable. L1-2: Unremarkable L2-3: Minimal disc bulge with left saw inal and extraforaminal shallow disc protrusion and annular fissure contacting and possibly irritating the exiting left L2 nerve root. The right foramen is patent. There is no canal stenosis. L3-4: Diffuse disc bulge with superimpos ed right foraminal and extraforaminal disc protrusion with the potential compromise of the exiting right L3 nerve root. There is no canal stenosis. The left foramen is patent. L4-5: Diffuse disc bulge with bilateral facet arthropathy. No canal stenosis or foraminal narrowing. L5-S1: Unremarkable. Visualized paraspinal soft tissues are u nremarkable. IMPRESSION: Right foraminal and extraforaminal large disc protrusion at L3-L4 level with compromise of the exiting right L3 nerve root. [id number] Performing Organization Address City/State/Zipcode Phone Number [facility] [address] [place] [address] XR Lumbar Spine Complete 4+ Vw (09/17/2019 2:31 PM CDT) Specimen Narrative Performed At This result has an attachment that is no t available. AP and lateral flexion-extension lumbar spine series: 6 lumbar vertebrae HM RADIANT with lumbarization of S1. Minimal spondylosis. Spi ne stable flexion-extension Performing Organization Address City/State/Zipcode Phone Number [facility] [address] [place] [address] after 07/09/2019 Advance Directives For more information, please contact: [phone] Type Date Recorded Patient Information Security Analyst Explanati on Advance Directives, Living Will and Medical Power of Bottle Sorter
--- OUTSIDE RECORDS SUMMARY | 2020-07-09 09:54 | XMS REPORT | Summary of Care ---
:1965 Author Organization [facility] [place] Address [address], [place] [address]- Encounter HQ Encntr_alias(FIN) [id number] Date(s): 05/21/20 - 05/21/20 [facility] [place] [id number] [place] [id number] [place] [address] Discharge Disposition: Home or Self Care Attending Physician: Bradley Martin MD Referring Physician: Bradley Martin MD Vital Signs No data available for this section Problem List No data available for this section Allergies, Adverse Reactions, Alerts Substance Reaction Severity Status penicillins Active codeine Active Medications No data available for this section Results No data available for this section Immunizations No data available for this section Procedures No data available for this section Social History Social History Type Response Alcohol Current, Type Wine. Frequen cy: 1-2 times per month. Smoking Status Never smoker; Exposure to To bacco Smoke None; Cigarette Smoking Last 365 Days No; Reg Smoking Cessation Counseling No entered on: 12/25/18 Assessment and Plan No data available for this section
--- OUTSIDE RECORDS SUMMARY | 2020-07-09 09:55 | XMS REPORT | Continuity of Care Document ---
:1965 Author Organization [facility] t Address [address] [place] [address] Care Team Providers Name Role Phone Adriano Martin MD Primary Care Physician Adriano Martin Attending Clinician Ciro Mancilla DO Attending Clinician DR WALLY Attending Clinician Unavailable Melissa Horowitz MD Attending Clinician Heladio RAMESH Attending Clinician Unavailable Brad GUZMAN Attending Clinician Unavailable Beto Cervantes MD Attending Clinician Rupert Titus Attending Clinician Tristin Garcia Attending Clinician DR WALLY Admitting Clinician Unavailable Payers Payer Name Policy Type Policy Number Effective Date Expiration Date S maxime [id number] xxxxxxxxxxxx 2017 [place] CHOICE 00:00:00 Faith PPO/FEDERAL EMPL PPOxxxxxxxxxxx x2017-Pres entPPO Problems Condition Condition Condition Status Onset Resolution Last Treating Co mments Source Name Details Category Date Date Treatment Clinician Date R07.9 - Diagnosis Active 2020-05-21 Me moria "CHEST 6-25 14:53:00 l PAIN, R07.9 - 00:01: Alexis UNSPECIFIE "CHEST 00 D" R10.9 PAIN, UNSPECIFIE D" R10.9 Active 05/15/2020 [facility] Kamilla Herniation Herniation Disease Active 2019- [place] of lumbar of lumbar 1-14 Meth alice interverte interverte 00:00: st bral disc bral disc 00 with with radiculopa radiculopa thy thy Lumbar Lumbar Disease Active 2018-11 [place] radiculopa radiculopa 0-28 Me thodi thy thy 00:00: st 00 Acute Acute Disease Active 2018-11 [place] right-side right-side 0-28 Me thodi d low back d low back 00:00: st pain pain 00 without without sciatica sciatica POSSIBLE Diagnosis Active 2018-12-24 M emoria STROKE - 21:46:00 l POSSIBLE 00:00: Kamron n STROKE 00 Active 12/24/2018 [facility] M25.561 - Diagnosis Active 2018-08-10 Memoria PAIN IN 07-04 15:53:00 l RIGHT KNEE M25.561 00:01: Her ferraro - PAIN IN 00 RIGHT KNEE Active 07/04/2018 [facility] J98.09 - Diagnosis Active 2018-05-11 M emoria OTHER 11-22 13:01:00 l DISEASES J98.09 - 00:01: Herm abhijit OF OTHER 00 BRONCHUS, DISEASES NO OF BRONCHUS, NO Active 8 [facility] [place] E04.1 - Diagnosis Active 2014-112015-09-04 Me moria NONTOXIC 0- 10:10:00 l SINGLE E04.1 - 00:01: Alexis THYROID NONTOXIC 00 NODULE SINGLE THYROID NODULE Active 08/27/2015 MARISA Kohli 648.10 - Diagnosis Active 2015-07-21 M emoria THYROID 06-19 16:14:00 l DYSFUN 648.10 - 00:01: Kamron n THYROID 00 DYSFUN Active 06/19/2015 [facility] 786.2/493. Diagnosis Active 2015-01-02 Memoria 2 2- 12:51:00 l 00:00: Alexis 786.2/493. 00 2 Active 12/31/2014 [facility] Palpitatio Problem 2019-07-14 M emoria ns 11:12:39 l [place] Palpitatio ns 07/14/2019 [facility] Generalize Problem 2019-07-14 M emoria d 11:12:39 l hyperhidro Kamron n sis Generalize d hyperhidro sis 07/14/2019 [facility] Nausea Problem 2019-07-14 Memor ia 11:12:39 l Nausea Alexis 07/14/2019 [facility] Dizziness Problem 2019-07-14 Me moria and 11:12:39 l giddiness Alexis Dizziness and giddiness 07/14/2019 [facility] Pure Problem 2019-07-14 Memor ia hyperchole 11:12:39 l sterolemia Pure Kamron n , hyperchole unspecifie sterolemia d , unspecifie d 07/14/2019 [facility] Allergy Problem 2019-07-14 Isaac flower status to 11:12:39 l penicillin Allergy Her ferraro status to penicillin 07/14/2019 [facility] Allergy Problem 2019-07-14 Isaac flower status to 11:12:39 l narcotic Allergy Jessica nn agent status to status narcotic agent status 07/14/2019 [facility] Adverse Problem Active 2018-08-22 Isaac flower effect of 02:00:25 l otorhinola Adverse Her ferraro ryngologic effect of al drugs otorhinola and ryngologic preparatio al drugs ns, and sequela preparatio ns, sequela Active Problem 08/22/2018 [facility] Allergic Problem Active 2018-08-22 Mem oria rhinitis, 02:00:25 l unspecifie Allergic He rmann d rhinitis, unspecifie d Active Problem 08/22/2018 [facility] Acute Problem Active 2018-08-22 Memor ia bronchitis 02:00:25 l due to Acute Alexis other bronchitis specified due to organisms other specified organisms Active Problem 08/22/2018 [facility] Cough Problem Active 2018-08-22 Memor ia 02:00:25 l Cough Alexis Active Problem 08/22/2018 [facility] Foreign Problem Active 2015-05-28 Isaac flower body in 02:08:44 l soft Foreign Alexis tissue body in soft tissue Active Problem 05/28/2015 [facility] Pain Problem Active 2015-05-28 Memor ia 02:08:44 l Pain [place] Active Problem 05/28/2015 [facility] Abscess/ce Problem Active 2015-05-28 M emoriamrita llulitis-f 02:08:44 l oot Alexis Abscess/ce llulitis-f oot Active Problem 05/28/2015 [facility] Syncope Problem 2018-2019-07-14 2019-07-14 Memoria and 2-04 11:12:39 11:12:39 l collapse Syncope 06:00: Jessica nn and 00 collapse 9 07/14/2019 [facility] Allergies, Adverse Reactions, Alerts Allergy Allergy Status Severity Reaction(s) Onset Inactive Treating Comm ents Source Name Type Date Date Clinician Codeine Propensi Active Rash 2018-11 [place] ty to 0-28 Methodi adverse 00:00: st reaction 00 s to drug codeine codeine Active Memoria l Alexis penicill penicill Active Memori a ins ins l Alexis Family History Family Member Diagnosis Comments Start Date Stop Date Source Natural mother Cancer [facility] thodist Paternal grandfather Cancer [facility] Social History Social Habit Start Date Stop Date Quantity Comments Source Sex Assigned At [facility] ethodist Alcohol intake 2019-11-13 2019-11-13 Ex-drinker [facility] thodist 00:00:00 00:00:00 (finding) Social History 2018-12-25 2018-12-25 [facility] ermann 06:35:48 06:35:48 TobaccoUse: 2015-05-19 2015-05-19 [facility] abhijit 00:00:00 00:00:00 Smoking Status Start Date Stop Date Source Never smoker [place] Method t Medications Ordered Filled Start Stop Current Ordering Indication Dosage Frequency Signature Comments Components Source Medication Medication Date Date Medication? Clinician (SIG) Name Name metoclopram 2018-11- No 10mg Q6H Take 1 [place]on katlyn 01-14 tablet (10 Methodi (REGLAN) 10 00:00: 23:59 mg total) st MG tablet 00 :00 by mouth every 6 (six) hours for 30 days. keTOROlac 2018-11- No 10mg Q6H Take 1 [place] on (TORadol) 01-14 tablet (10 Met hodi 10 mg 00:00: 23:59 mg total) st tablet 00 :00 by mouth every 6 (six) hours as needed for moderate pain for up to 5 days. tiZANidine 2018-11 Yes 2mg Q.[id number] Take 2 mg [place] (ZANAFLEX) 0-16 [id number] by mouth 3 Methodi 2 MG tablet 00:00: 3D (three) st 00 times a day. Sodium 2019-0 No 1,000 mL, Memori a Chloride -04 1000 l 0.9% 06:46: ml/hr, [place] (Bolus) IV 00 Infuse Over: 1 hr, Route: IV, 1,000, Drug form: INJ, ONCE, Priority: STAT, Dosing Weight 96.364 kg, Start date: 12/25/18 0:46:00 CLEARING HAND, Stop date: 12/25/18 0:46:00 CLEARING HAND Vital Signs Vital Name Observation Time Observation Value Comments Source Systolic blood 2019-11-13 00:45:00 112 mm[Hg] Tes[place]o n [facility] pressure Diastolic blood 2019-11-13 00:45:00 80 mm[Hg] Martín on Faith pressure Heart rate 2019-11-13 00:45:00 74 /min Narvaez Faith Respiratory rate 2019-11-13 00:45:00 18 /min Tesha ton Faith Oxygen saturation in 2019-11-13 00:45:00 97 /min Narvaez Faith Arterial blood by Pulse oximetry Body temperature 2019-11-12 22:08:13 36.5 Ev H[place] Faith Body height 2019-11-12 22:01:00 180.3 cm [place] [facility] Body weight 2019-10-04 13:52:00 99.791 kg [place] [facility] BMI 2019-10-04 13:52:00 30.68 kg/m2 [place] Faith Temperature Oral (F) 2018-12-25 08:11:00 98.2 F [facility] [place] Heart Rate 2018-12-25 08:11:00 [facility] Alexis Respitory Rate 2018-12-25 08:11:00 Memori al Alexis Systolic (mm Hg) 2018-12-25 08:11:00 Isaac rial [place] Diastolic (mm Hg) 2018-12-25 08:11:00 Mem orial [place] Heart Rate 2018-12-25 07:00:00 [facility] [place] Systolic (mm Hg) 2018-12-25 07:00:00 Isaac rial Alexis Diastolic (mm Hg) 2018-12-25 07:00:00 Mem orial [place] Respitory Rate 2018-12-25 07:00:00 Memori al [place] Systolic (mm Hg) 2018-12-25 06:00:00 Isaac rial Alexis Diastolic (mm Hg) 2018-12-25 06:00:00 Erik denney Alexis Heart Rate 2018-12-25 06:00:00 [facility] [place] Respitory Rate 2018-12-25 06:00:00 Bernard beth Alexis Weight 2018-12-25 03:01:00 [facility] Temperature Oral (F) 2018-12-25 03:01:00 99.5 F [facility] [place] Height 2015-01-02 19:00:00 185.42 cm [facility] Alexis BMI Calculated 2015-01-02 19:00:00 Bernard beth [place] Weight 2015-01-02 19:00:00 [facility] [place] Procedures Procedure Date / Time Performing Clinician Source Performed ECG ED PRELIMINARY 2019-11-13 02:06:34 Humphrey Mancilla INTERPRETATION Ciro CT ANGIOGRAM HEAD W WO 2019-11-13 01:40:43 Humphrey Mancilla CONTRAST Ciro CT ANGIOGRAM NECK W WO 2019-11-13 01:40:18 Humphrey Mancilla CONTRAST Ciro HC COMPLETE BLD COUNT 2019-11-13 00:15:00 Humphrey Mancilla W/AUTO DIFF Ciro PROTHROMBIN TIME WITH INR 2019-11-13 00:15:00 Humphrey Mancilla PARTIAL THROMBOPLASTIN 2019-11-13 00:15:00 Humphrey Mancilla TIME (PTT) Ciro COMPREHENSIVE METABOLIC 2019-11-13 00:15:00 Humphrey Mancilla PANEL Ciro LACTIC ACID LEVEL, SEPSIS 2019-11-13 00:15:00 Humphrey Mancilla - NOW AND REPEAT 2X EVERY Ciro 3 HOURS CREATINE KINASE, TOTAL 2019-11-13 00:15:00 Humphrey Mancilla (CPK) Ciro ESTIMATED GFR 2019-11-13 00:15:00 Humphrey Mancilla Nd thodist Ciro ECG 12-LEAD 2019-11-12 22:12:30 Humphrey Mancilla Nd doreen Tanner [place] INJECT TRIGGER POINT, 1 2019-09-20 10:30:00 Darrin Horowitz OR 2 MRI LUMBAR SPINE WO 2019-09-18 11:42:46 Darrin Horowitz CONTRAST XR LUMBAR SPINE COMPLETE 2019-09-17 14:31:05 Darrin Horowitz 4+ VW Plan of Care Planned Activity Planned Date Details Comments Source Future Scheduled 2020-07-22 INFLUENZA VACCINE Cassandra davila [facility] Test 00:00:00 [code = INFLUENZA VACCINE] Future Scheduled 2016 COLONOSCOPY SCREENING Ho usnidhi Faith Test 00:00:00 [code = COLONOSCOPY SCREENING] Future Scheduled 2016 SHINGLES VACCINES Cassandra davila [facility] Test 00:00:00 (#1) [code = SHINGLES VACCINES (#1)] Encounters Start End Encounter Admission Attending Care Care Encounter Source Date/Time Date/Time Type Type Clinicians Facility Department ID 2020-05-21 2020-05-21 Outpatient Mario, 2.16.840. 2.16.840.1. 3 [id number] 14:43:00 23:59:00 Bradley [id number] Litzye 3.615.28 5.28 2019-10-22 2019-10-22 Outpatient [place] [id number] [facility] 05:17:00 09:32:00 [facility] 2019-04-12 2019-04-12 Outpatient Mario, 2.16.840. 2.16.840.1. 3 [id number] 08:42:00 23:59:00 Bradley [id number] Adriano 3.615.28 5.2019-03-29 2019-03-29 Outpatient Mario, 2.16.840. 2.16.840.1. 3 [id number] 08:26:00 23:59:00 Bradley [id number] Lit[place] 3.615.28 5.2019-02-26 2019-02-26 Outpatient Mario, 2.16.840. 2.16.840.1. 3 [id number] 12:22:00 23:59:00 Bradley [id number] Dengnese 3.615.28 5.2018-12-24 2018-12-25 Outpatient Titus, Markel [facility] [id number] 20:56:00 02:12:00 Rupert Quinonez 2018-12-24 2018-12-25 Outpatient Titus, Markel [facility] [id number] 20:56:00 02:12:00 Rupert Cristiano 2018-08-21 2018-08-21 Outpatient Corey Kent [id number] [facility] 10:51:00 10:51:00 Carmen Young MD - - Nancy weller 2018-07-10 2018-07-10 Outpatient Mario, 2.16.840. 2.16.840.1. 3 [id number] 09:00:00 09:00:00 Bradley [id number] Darnese 3.615.64 5.64 2017-06-01 2017-06-01 Outpatient Mario, 2.16.840. 2.16.840.1. 3 [id number] 09:57:00 23:59:00 Bradley [id number] 05 Darnese 3.615.28 5.28 2015-09-04 2015-09-04 Outpatient Mario, 2.16.840. 2.16.840.1. 3 [id number] 09:58:00 23:59:00 Bradley [id number] 03 Darnese 3.615.28 5.28 2015-05-20 2015-05-20 Outpatient [facility] [id number] [facility] 17:06:00 17:06:00 Dariela Monson s Podiat[facility] Podiatry 2015-01-02 2015-01-02 Outpatient Consuelo GarciaIE [id number] 12:44:00 23:59:00 B 00 2015-01-01 2015-01-01 Outpatient Consuelo GarciaIE [id number] 12:44:00 23:59:00 B 01 Results Test Description Test Time Test Comments Results Result Comments Source ECG 12 lead 2019-11-13 07:57:24 Test Item Value Reference Range Interpretation Comme nts Ventricular rate (test code = 253) 76 Atrial rate (test code = 255) 76 SC interval (test code = 266) 140 QRSD interval (test code = 260) 88 QT interval (test code = 264) 376 QTC interval (test code = 265) 423 P axis 1 (test code = 267) 34 QRS axis 1 (test code = 268) 32 T wave axis (test code = 270) 30 EKG impression (test code = 273) Normal sinus rhythm-Normal ECG-No previous ECGs available- [place] [facility] Interpretation - Not an [id number] 02:06:34Humphrey Mancilla DO 11/13/2019 6:43 [facility] Preliminary Interpretation - Not an OrderPerformed by: Humphrey Mancilla DOAuthorized by: Humphrey Mancilla DO ECG reviewed by ED Physician in the absence of a scenery builder: yes Interpretation: Interpretation: normal Rate: ECG rate: 76 ECG rate assessment: normal Rhythm: Rhythm: sinus rhythm QRS: QRS axis: Normal QRS intervals: NormalST segments: ST segments: NormalT waves: T waves: normalHouston MethodistCTA Neck W Wo [id number] 01:49:58Hm Interface, Radiology Results 11/13/2019 1:53 AM CSTEXAM: CT ANGIOGRAM NECK W WO CONTRASTCLINICAL HISTORY: dizziness reported left carotid dissection on outside USTECHNIQUE: Imaging of the cervical circulation was obtained from the upper thorax to the skull base during the arterial phase of enhancement. Postprocessing was performed with MIP multiplanar and 3D reconstructed images. CT scans are performed using radiation dose reduction techniques. Technical factors are evaluated and adjusted to ensure appropriate moderation of exposure. Automated dose management technology is applied to adjust radiation exposure while achieving a diagnostic quality image.COMPARISON: NoneFINDINGS:Thecommon carotid arteries, carotid bulbs, internal carotid arteries and external carotid arteries are opacified with 0% stenosis by NASCET criteria. Left cervical ICA is tortuous.The vertebral arteries are patent throughout the visualized cervical segments without significant stenosis.The vertebral arteries are roughly codominant.Visualized soft tissues shows no mass, adenopathy or fluid collection.No large, irregular thyroid nodule or mass is present.Lung apices are without evidence of focal consolidation or suspicious pulmonary nodule.Visualized osseous structures shows no acute fracture or dislocation. C5-C6 anterior interbody fusion noted. Straightening of cervical lordotic curvature is noted, likely secondary to patient positioning.IMPRESSION:1.No hemodynamically significant narrowing of the cervical vessels by NASCET criteria.[facility]-[id number] MethodistCTA Head W Wo [id number] 01:47:00Hm Interface, Radiology Results 11/13/2019 1:50 AM CSTEXAM: CT ANGIOGRAM HEAD W WO CONTRASTCLINICAL HISTORY: dizziness reported left carotid dissection on outside studyTECHNIQUE: Imaging of the intracranial circulation was obtained from the skull base to the vertex during the arterial phase of enhancement. Postprocessing was performed with MIP multiplanar and 3D reconstructed images. CT scans are performed using radiation dose reduction techniques. Technical factors are evaluated and adjusted to ensure appropriate moderation of exposure. Automated dose management technology is applied to adjust radiation exposure while achieving a diagnostic quality image.COMPARISON: NoneFINDINGS:No hemodynamically significant stenosis is identified of the intracranial internal carotid arteries, middle cerebral arteries, anterior cerebral arteries, intracranial vertebral arteries, basilar artery or posterior cerebral arteries. There is no aneurysmal dilatation or vascular malformation of the [place].The major dural sinuses are opacified normally.There are no gross brain parenchymal abnormalities. There is no midline shift, hydrocephalus or extra-axial fluid collection.Soft tissue shows no evidence of laceration or hematoma.Postsurgical changes to the ethmoidal air cells noted. Mild mucosal thickening seen within the right maxillary sinus and to a lesser extent within the remaining sinuses. There is no air-fluid level in the sinuses. Osseous calvarium is intact.IMPRESSION:1.No hemodynamically significant narrowing of the [place] vessels.[facility]-[id number] MethodistComprehensive metabolic [id number] 01:06:42 Test Item Value Reference Range Interpretation Comments Sodium (test code = 138 135- 148 mEq/L 2951-2) Potassium (test code = 4.1 3.5- 5.0 mEq/L 2823-3) Chloride (test code = 100 98- 112 mEq/L 5-0) CO2 (test code = 8-9) 23 24- 31 mEq/L L Anion gap (test code = 15@ANIO 7- 15 mEq/L 09126-8) BUN (test code = 3094-0) 26 mg/dL 6-20 H Creatinine (test code = 1.16 mg/dL 0.7-1.2 2160-0) Glucose (test code = 96 mg/dL 65-99 2345-7) Calcium (test code = 9.9 mg/dL 8.3-10.2 07829-7) Protein (test code = 7.4 g/dL 6.3-8.3 [place] 9994.6-7.0 2885-2) g/dL1 zupm8716.4-7.6 g/dL7 months-2gbrj790 .1- 7.3 g/dL1-2 sdngi565.6-7.5 g/dL>3 syrxw348.0-8.0 g/dP45-2962201. 3-8 .3 g/dL Albumin (test code = 3.8 g/dL 3.5-5 1751-7) A/G ratio (test code = 1.1 0.7-3.8 1759-0) Alkaline phosphatase 92 U/L 40-129 (test code = 6768-6) AST (test code = 1920-8) 70 U/L 10-50 H ALT (test code = 1742-6) 107 U/L 5-50 H Total bilirubin (test 0.5 mg/dL 0-1.2 code = 1975-2) Lab Interpretation (test Abnormal code = 13786-6) Brice MethodistEstimated [id number] 01:06:42 Test Item Value Reference Range Interpretation Comments Estimated GFR (test 71 mL/min/1.73 m2 Caterg ory Units code = 5488) InterpretationG 1 >=90 Normal or highG2 60-89 Mildly fivgkylzrE4c 45-59 Mildly to mode rately xqhlruhbwP4l 30-44 Moderately to severely decreasedG4 15-29 Severely decre asedG5 <15 Kidn ey failureThe eGFR was calculated charlotte calderon the Chronic Kidney Disease Epidemiology Co llaboration (CKD-EPI) equat ion. Interpretation is based on recommendations of the National Kidney Foundation-Kidn ey Disease Outcomes Qualit y Initiative (NKF-KDOQI) pub lished in 2013. Brice MethodistCreatine kinase, total (CPK)2019-11-13 01:06:30 Test Item Value Reference Range Interpretation Comments Creatine kinase (test code = 2157-6) 85 U/L 39-308 [place] MethodistLactic acid level, SEPSIS - Now and repeat 2x every 3 hours 2019-11-13 01:01:28 Test Item Value Reference Range Interpretation Comments Lactic acid (test code = 84779-7) 1.2 mmol/L 0.5-2.2 [place] MethodistPartial thromboplastin time, [id number] 00:57:34 Test Item Value Reference Range Interpretation Comments PTT (test code = 27.8 23.0- 36.0 [place] [address]-6) unfractionated heparin is61.0-112.0 se conds which corresponds to Anti-Xa0.3-0.7 U/ml. [place] MethodistProthrombin time with [id number] 00:56:55 Test Item Value Reference Range Interpretation Comments Prothrombin time (test 11.7 11.5- 14.5 sec code = 5902-2) INR (test code = 0.9 The Interna tional 01366-3) Normalized Rati o (INR) is a therapeutic m onitoring tool for patien ts who are stable on oral anticoagulant t herapy. An INR of 2.0-3.0 is suggested for d eep vein thrombosis/pulm onary embolism. [place] MethodistCBC with platelet and [id number] 00:53:30 Test Item Value Reference Range Interpretation Comments WBC (test code = 29464-8) 7.69 4.50- 11.00 k/uL RBC (test code = 70304-6) 5.06 m/uL 4.4-6 HGB (test code = 718-7) 14.9 g/dL 14-18 HCT (test code = 4544-3) 43.7 % 41-51 MCV (test code = 787-2) 86.4 fL 82-100 MCH (test code = 785-6) 29.4 pg 27-34 MCHC (test code = 786-4) 34.1 g/dL 31-37 RDW - SD (test code = 40.5 fL 37-55 57356-2) MPV (test code = 47624-0) 9.4 fL 8.8-13.2 Platelet count (test code 283 150- 400 k/uL = 99111-7) Nucleated RBC (test code 0.00 /100 WBC = 29558-4) Neutrophils (test code = 48.4 % 39-69 73220-5) Lymphocytes (test code = 36.4 % 25-45 83431-7) Monocytes (test code = 9.2 % 0-10 67112-7) Eosinophils (test code = 3.9 % 0-5 90676-6) Basophils (test code = 1.2 % 0-1 H 94843-0) Immature granulocytes 0.9 % 0-1 "Immat ure (test code = 68500-6) granul ocytes" (promyelocytes, myelocytes, metamyelocytes) Lab Interpretation (test Abnormal code = 80336-2) [place] Methodist1 or 2 Trigger Point Injection: R [id number] 10:30:00 Darrin Horowitz III, MD 09/20/2019 3:49 PM1 or 2 Trigger Point Injection: R lumbarDate/Time: 09/20/2019 3:48 PMPerformed by: Darrin Horowitz III MDAuthorized by: Darrin Horowitz III, MD Consent: Consent obtained: Verbal Consent given by: PatientIndications: Indications: Pain reliefLocation: Therapeutic Trigger Point Injection: Single/multiple trigger point(s): 1-2 musclegroups Location: back Back location injected: R lumbar Platelet Rich Plasma Used: no PRP Used EMG Guidance Used: no emg guidance usedRight side:Right Lumbar Medications administered: 0.5 mL lidocaine 10 mg/mL (1 %); 1 mL lidocaine 10 mg/mL (1 %); 3 mg betamethasone acetate & sodium phosphate6 mg/mL; 6 mg betamethasone acetate & sodium phosphate 6 mg/mL Pre-procedure details: Neurovascular status: intact Skin preparation: AlcoholProcedure details: Syringe type: Luer lock syringe Needle gauge: 25 GPost-procedure details: Patient tolerance of procedure: Tolerated well, no immediate complicationsCareywood FaithI Lumbar Spine Wo [id number] 16:14:05Hm Interface, Radiology Results - 09/18/2019 4:17 PM CDTEXAMINATION: MRI LUMBAR SPINE WO CONTRASTCLINICAL HISTORY: M54.16 Radiculopathy lumbar region, Radiculopathy 6wks no red flags no prior managementCOMPARISON: None.TECHNIQUE:Multiplanar MRI imaging IV Gadolinium was performed.FINDINGS:There is normal lumbar lordosis and alignment. Vertebral bodies are preserved. Bone marrow is unremarkable with no evidence of acute fracture or suspicious marrow-replacing lesion. Intervertebraldisc spaces are relatively preserved. The distal spinal cord appears unremarkable. The conus medullaris terminates at the L1-L2 level and appears unremarkable. The cauda equina is unremarkable.L1-2: UnremarkableL2-3: Minimal disc bulge with left foraminal and extraforaminal shallow disc protrusion andannular fissure contacting and possibly irritating the exiting left L2 nerve root. The right foramenis patent. There is no canal stenosis.L3-4: Diffuse disc bulge with superimposed right foraminal andextraforaminal disc protrusion with the potential compromise of the exiting right L3 nerve root. There is no canal stenosis. The left foramen is patent.L4-5: Diffuse disc bulge with bilateral facet arthropathy. No canal stenosis or foraminal narrowing.L5-S1: Unremarkable.Visualized paraspinal soft tissues are unremarkable.IMPRESSION:Right foraminal and extraforaminal large disc protrusion at L3-L4 level with compromise of the exiting right L3 nerve root.[id number] MethodistCARDIAC [id number] 06:30:90425 [facility] HermannCARD[facility] [id number] 06:30:001.4[facility] HermannCARDIAC [id number] 06:30:00<0.02[facility] HermannCARDIAC [id number] 06:30:00 Test Item Value Reference Range Interpretation Comments CK MB Index (test code = CK MB Index) 1.0 1 <=2.5 [facility] MediaannCHEM [id number] 06:30:0056[facility] HermannCHEM PANEL 2018-12-25 06:30:00 Test Item Value Reference Range Interpretation Comments B/C Ratio (test code = B/C Ratio) 12 1 6-25 [facility] HermannCHEM [id number] 06:30:0066[facility] HermannCHEM PANEL 2018-12-25 06:30:001.43Mem[facility] HermannCHEM [id number] 06:30:46844Twvdntem HermannCHEM [id number] 06:30:0017Memorial HermannCHEM [id number] 06:30:0024Memorial HermannCHEM [id number] 06:30:004.2[facility] HermannCHEM [id number] 06:30:0014.3[facility]annCHEM RTOXY4463-04-16 06:30:0062 [facility] QBKML9771-76-73 06:30:0033[facility]annCHEM PANEL 2018-12-25 06:30:00 Test Item Value Reference Range Interpretation Comments A/G Ratio (test code = A/G Ratio) 1.2 1 0.7-1.6 [facility]annCHE[facility] [id number] 06:30:000.6[facility] HermannCHEM PANEL 2018-12-25 06:30:003.6[facility]annCHEM MWMAS7934-12-50 06:30:007.8[facility]annCHEM NSTWW5072-12-16 06:30:26643Gsecfnic HermannCHEM HPNWV5611-27-04 06:30:17478Ppkooxot HermannCHEM LACBY6025-19-22 06:30:004.3[facility]annCHEM DEKJH2341-90-29 06:30:009.2[facility] NuglfkfLIPXFOQSJKAI6342-34-43 06:30:89940 [facility] BkhqhotAYQIEAMOHTWB1258-70-72 06:30:004.3[facility] HermannELECTROLYTES 2018-12-25 06:30:56294Kjoxkhwz XvecmwqBPEHGYOLKSAA4174-96-46 06:30:009.2[facility] GthuxrqZQPFGLLKQVAJ9021-23-81 06:30:0017[facility] CcmsserNOTYPPSEVZMM5278-79-85 06:30:0024[facility] FzzcfiiJQMFETNHITRH4367-42-27 06:30:004.2[facility] XREZOMMNPSAW6627-83-15 06:30:0014.3[facility] TdtvkbaFBXIMWMAXJFJ2644-74-43 06:30:59851Ltgmbcxm RakrcuaZMAMNKDIGXFH1672-91-84 06:30:0033[facility] QCAKUBEELBVN9707-66-77 06:30:001.43[facility] NzngvugEOCHWVKGSGCE5557-55-15 06:30:0066[facility] BqknpxsOGKKEQIAVCCF8264-65-23 06:30:00 Test Item Value Reference Range Interpretation Comments B/C Ratio (test code = B/C Ratio) 12 1 6-25 [facility] DnkiaigNHDZNJDOEGKL5334-18-97 06:30:0056[facility] HermannELECTROLYTES 2018-12-25 06:30:007.8[facility] YpgodmtRDQGQKKYUXDW8644-98-66 06:30:000.6[facility] PqlqcaoSQLAFUFOLHZR7382-06-55 06:30:003.6[facility] OneovqkASVFKFKAATOD8093-26-70 06:30:00 Test Item Value Reference Range Interpretation Comments A/G Ratio (test code = A/G Ratio) 1.2 1 0.7-1.6 [facility] YorngafRWYYTIKGFSZK4321-18-14 06:30:0062[facility] HermannHEMATOLOGY 2018-12-25 06:30:007.7[facility] GmfzzflJYTSFSQDQS8829-76-73 06:30:00 Test Item Value Reference Range Interpretation Comments MCH (test code = MCH) 30.5 pg 27.0-31.0 [facility] TzdpuneTSZLZKFJRM2899-51-38 06:30:0035.0[facility] HermannHEMATOLOGY 2018-12-25 06:30:0013.2[facility] NrbkdltHPSYQSEIKJ3329-95-37 06:30:43284Zizpdejn IbxbrwlRCUWEKCQNC6735-63-13 06:30:0012.4[facility] WoyeokgIIIDKITINC9083-10-46 06:30:005.43[facility] NsnlnggVJUNXUCXOG5688-24-44 06:30:0016.6[facility] IIWJQXWPTI1333-67-48 06:30:0047.3[facility] QbupdxjIRRNBBQDDP4883-89-16 06:30:00 87.1[facility] BuzxjzcAICXNPWNKA5155-87-74 06:30:001.2[facility] HermannHEMATOLOGY 2018-12-25 06:30:000.5[facility] RfpsyekGPVVAEHCDR5674-21-75 06:30:000.1[facility] JjbkwmzDJDGAHQZWB1468-37-48 06:30:0085.4[facility] GnsakovCBZNHSOJYB2824-90-41 06:30:004.0[facility] HabcazlPHULRNNQHX5225-78-49 06:30:000.2[facility] LZHKQZHPRQ1875-93-72 06:30:000.4[facility] KnrwmkmJDSKRNVICD6647-82-00 06:30:00 10.6[facility] ZjbtvkaRFKWHTGNZP4603-95-19 06:30:0010.0[facility]annURINE AND QXHNM8877-04-71 06:30:00 Test Item Value Reference Range Interpretation Comments UA Spec Grav (test code = UA Spec 1.023 1 Grav) [facility] [id number] 06:30:00 Test Item Value Reference Range Interpretation Comments UA pH (test code = UA pH) 5.0 1 5.0-8.0 [facility] [id number] 06:30:00Negative (12/25/18 12:30 AM) [facility] HFUAK8261-39-68 06:30:00Clear (12/25/18 12:30 AM) [facility] LQUFI8962-80-72 06:30:00Negative *NA*(12/25/18 12:30 AM) [facility] ASSSK4944-50-70 06:30:003[facility] RWVCX7348-56-85 06:30:001[facility] WSXLU5935-39-91 06:30:00 Negative (12/25/18 12:30 AM)[facility] ZFUUX1690-09-19 06:30:00 Negative *NA*(12/25/18 12:30 AM)[facility] ZRFHO2162-36-45 06:30:00 Small *ABN*(12/25/18 12:30 AM)[facility] ZQDPE4908-00-75 06:30:00 Negative (12/25/18 12:30 AM)[facility] JOACY2475-34-27 06:30:0018 [facility] ZNKPK0585-78-00 06:30:00Yellow *NA*(12/25/18 12:30 AM) [facility]
[2020-07-09] MEDS ORDERED: NA CHLORIDE 0.9% 1,000 ML ONE (10:25)
[2020-07-09] MEDS ORDERED: METHYLPREDNISOLONE 125 MG INJ ONE (10:25)
[2020-07-09] MEDS ORDERED: FAMOTIDINE 20 MG/2 ML VIAL IV ONE (10:25)
--- NOTE | 2020-07-09 11:16 | ER ---
Nurse's Notes [facility] Name: Souleymane Phillip Age: 55 yrs Sex: Male : 1965 Arrival Date: 07/09/2020 Time: 09:51 Bed 20 Private MD: Diagnosis: Allergic dermatitis of eyelid Presentation: 07/09 10:06 Chief complaint: Patient states: went fishing today and did not have sunglasses on for em about 1 hour noticed eyes started to swell and get red, also were hard to keep open, took 2 benadryl BUNCH TRIMMER MOLD, reports mild congestion, rates eye pain 2/10. Coronavirus screen: Client denies travel out of the [place] in the last 14 days. Ebola Screen: Patient negative for fever greater than or equal to 101.5 degrees Fahrenheit, and additional compatible Ebola Virus Disease symptoms Patient denies exposure to infectious person. Patient denies travel to an Ebola-affected area in the 21 days before illness onset. No symptoms or risks identified at this time. Initial Sepsis Screen: Does the patient meet any 2 criteria? No. Patient's initial sepsis screen is negative. Does the patient have a suspected source of infection? No. Patient's initial sepsis screen is negative. Risk Assessment: Do you want to hurt yourself or someone else? Patient reports no desire to harm self or others. Onset of symptoms was July 09, 2020. 10:06 Method Of Arrival: Ambulatory em 10:06 Acuity: BLANK 4 em Historical: - Allergies: 10:10 Codeine; em - Home Meds: 10:10 None [Active]; em - PMHx: 10:10 None; em - PSHx: 10:10 None; em - Immunization history:: Adult Immunizations up to date. - Social history:: Smoking status: Patient denies any tobacco usage or history of. Screenin:10 Abuse screen: Denies threats or abuse. Nutritional screening: No deficits noted. em Tuberculosis screening: No symptoms or risk factors identified. Fall Risk None identified. Assessment: 10:10 General: Appears in no apparent distress. uncomfortable, Behavior is calm, cooperative, em appropriate for age, Denies fever. Pain: Complains of pain in right eye and left eye Pain currently is 2 out of 10 on a pain scale. Pain began 3 hours ago. Neuro: Level of Consciousness is awake, alert, obeys commands, Oriented to person, place, time, situation, Appropriate for age. Cardiovascular: Capillary refill < 3 seconds Patient's skin is warm and dry. Respiratory: Airway is patent Respiratory effort is even, unlabored, Respiratory pattern is regular, symmetrical. GI: Abdomen is flat, Patient currently denies nausea, vomiting. EENT: Eyes are tearing on right eye and left eye redness and mild swelling noted. Reports nasal congestion. Derm: Skin is intact, is healthy with good turgor, Skin is pink, warm \T\ dry. Musculoskeletal: Capillary refill < 3 seconds, Range of motion: intact in all extremities. 11:20 Reassessment: Patient appears in no apparent distress at this time. Patient and/or em family updated on plan of care and expected duration. Pain level reassessed. Patient is alert, oriented x 3, equal unlabored respirations, skin warm/dry/pink. Patient states feeling better. Patient states symptoms have improved. Vital Signs: 10:06 BP 108 / 81; Pulse 76; Resp 18; Pulse Ox 95% on R/A; Weight 97.52 kg; Height 5 ft. 11 em in. (180.34 cm); Pain 2/10; 10:15 Temp 98.1(O); em 10:06 Body Mass Index 29.99 (97.52 kg, 180.34 cm) em ED Course: 09:51 Patient arrived in ED. ds1 10:03 [facility]C [facility] kb 10:03 Judson Boyle MD is Attending Physician. kb 10:06 Kip Walters, GADIEL is Primary Nurse. em 10:10 Triage completed. em 10:10 Arm band placed on. em 10:10 Patient has correct armband on for positive identification. Call light in reach. Side em rails up X2. Pulse ox on. NIBP on. 10:22 Inserted saline lock: 20 gauge in right forearm, using aseptic technique. em 11:41 No provider procedures requiring assistance completed. IV discontinued, intact, em bleeding controlled, No redness/swelling at site. Pressure dressing applied. Administered Medications: 10:22 Drug: NS 0.9% 1000 ml Route: IV; Rate: 1000 ml; Site: left forearm; em 11:20 Follow up: IV Status: Completed infusion; IV Intake: 1000ml em 10:22 Drug: Pepcid 20 mg Route: IVP; Site: left forearm; em 11:20 Follow up: Response: No adverse reaction; Marked relief of symptoms em 10:24 Drug: SOLU-Medrol 125 mg Route: IVP; Site: left forearm; em 11:20 Follow up: Response: No adverse reaction; Marked relief of symptoms em Intake: 11:20 IV: 1000ml; Total: 1000ml. em Outcome: 11:15 Discharge ordered by . kb 11:42 Discharged to home ambulatory. em 11:42 Condition: improved 11:42 Discharge instructions given to patient, Instructed on discharge instructions, follow up and referral plans. medication usage, Demonstrated understanding of instructions, follow-up care, medications, Prescriptions given X 2. 11:43 Patient left the ED. em Signatures: Nory Yost, DEEP SUBMERGENCE VEHICLE CREWMEMBER-C DEEP SUBMERGENCE VEHICLE CREWMEMBER-Kip Torres, RN RN em Maida Baldwin ds1 Corrections: (The following items were deleted from the chart) 10:15 10:06 Acuity: BLANK 3 em em 11:50 10:10 EENT: Eyes are tearing on right eye and left eye Reports nasal congestion em em 11:51 10:10 EENT: Eyes are tearing on right eye and left eye mild swelling noted. Reports em nasal congestion em
--- NOTE | 2020-07-09 11:16 | EDPHYS ---
Physician Documentation [facility] Name: Souleymane Phillip Age: 55 yrs Sex: Male : 1965 Arrival Date: 07/09/2020 Time: 09:51 Bed 20 Private MD: ED Physician Judson Boyle HPI: 07/09 10:45 This 55 yrs old Male presents to ER via Ambulatory with complaints of Eye kb Swelling. 10:45 The patient is experiencing tearing, The patient sustained None. to both eyes, caused kb by an unknown mechanism. Onset: The symptoms/episode began/occurred just prior to arrival. Duration: the symptoms are continuous. Aggravated by light, Alleviated by nothing. Associated signs and symptoms: Pertinent positives: runny nose, Pertinent negatives: chills, dizziness, ear ache, fever, headache. Patient does not utilize any form of vision correction. Severity of symptoms: At their worst the symptoms were moderate in the emergency department the symptoms have improved. The patient has not experienced similar symptoms in the past. The patient has not recently seen a physician. Pt reports he went fishing this morning, got everything cleaned and packed up to go home and started having congestion and swelling to eyelids. States he took 50mg of benadryl and was going to try to drive home to [place], but started getting worried that something might happen like anaphylaxis so he came here. "I wanted to just sit in the waiting room for a while to make sure nothing happened and then go home." States he is feeling better already and the swelling has gone away for the most part. . Historical: - Allergies: 10:10 Codeine; em - Home Meds: 10:10 None [Active]; em - PMHx: 10:10 None; em - PSHx: 10:10 None; em - Immunization history:: Adult Immunizations up to date. - Social history:: Smoking status: Patient denies any tobacco usage or history of. ROS: 10:43 Constitutional: Negative for fever, chills, and weight loss, Cardiovascular: Negative kb for chest pain, palpitations, and edema, Respiratory: Negative for shortness of breath, cough, wheezing, and pleuritic chest pain, Abdomen/GI: Negative for abdominal pain, nausea, vomiting, diarrhea, and constipation, Back: Negative for injury and pain, MS/Extremity: Negative for injury and deformity, Skin: Negative for injury, rash, and discoloration, Neuro: Negative for headache, weakness, numbness, tingling, and seizure. 10:43 Eyes: Positive for swelling, tearing. 10:43 ENT: Positive for rhinorrhea, sinus congestion. Exam: 10:43 Constitutional: This is a well developed, well nourished patient who is awake, alert, kb and in no acute distress. Head/Face: Normocephalic, atraumatic. Eyes: Pupils equal round and reactive to light, extra-ocular motions intact. Lids and lashes normal. Conjunctiva and sclera are non-icteric and not injected. Cornea within normal limits. Periorbital areas with no swelling, redness, or edema. ENT: Nares patent. No nasal discharge, no septal abnormalities noted. Tympanic membranes are normal and external auditory canals are clear. Oropharynx with no redness, swelling, or masses, exudates, or evidence of obstruction, uvula midline. Mucous membranes moist. Neck: Trachea midline, no thyromegaly or masses palpated, and no cervical lymphadenopathy. Supple, full range of motion without nuchal rigidity, or vertebral point tenderness. No Meningismus. Chest/axilla: Normal chest wall appearance and motion. Nontender with no deformity. No lesions are appreciated. Cardiovascular: Regular rate and rhythm with a normal S1 and S2. No gallops, murmurs, or rubs. Normal PMI, no JVD. No pulse deficits. Respiratory: Lungs have equal breath sounds bilaterally, clear to auscultation and percussion. No rales, rhonchi or wheezes noted. No increased work of breathing, no retractions or nasal flaring. Abdomen/GI: Soft, non-tender, with normal bowel sounds. No distension or tympany. No guarding or rebound. No evidence of tenderness throughout. Skin: Warm, dry with normal turgor. Normal color with no rashes, no lesions, and no evidence of cellulitis. MS/ Extremity: Pulses equal, no cyanosis. Neurovascular intact. Full, normal range of motion. Neuro: Awake and alert, GCS 15, oriented to person, place, time, and situation. Cranial nerves II-XII grossly intact. Motor strength 5/5 in all extremities. Sensory grossly intact. Cerebellar exam normal. Normal gait. Vital Signs: 10:06 BP 108 / 81; Pulse 76; Resp 18; Pulse Ox 95% on R/A; Weight 97.52 kg; Height 5 ft. 11 em in. (180.34 cm); Pain 2/10; 10:15 Temp 98.1(O); em 10:06 Body Mass Index 29.99 (97.52 kg, 180.34 cm) em MDM: 10:03 Patient medically screened. kb 10:43 Data reviewed: vital signs, nurses notes. Data interpreted: Pulse oximetry: on room air kb is 95 %. Interpretation: normal. Counseling: I had a detailed discussion with the patient and/or guardian regarding: the historical points, exam findings, and any diagnostic results supporting the discharge/admit diagnosis, the need for outpatient follow up, a family practitioner, to return to the emergency department if symptoms worsen or persist or if there are any questions or concerns that arise at home. 11:14 ED course: After treatment, pt states "I am a thousand times better." . kb 07/09 10:13 Order name: IV Start; Complete Time: 10:24 kb Administered Medications: 10:22 Drug: NS 0.9% 1000 ml Route: IV; Rate: 1000 ml; Site: left forearm; em 11:20 Follow up: IV Status: Completed infusion; IV Intake: 1000ml em 10:22 Drug: Pepcid 20 mg Route: IVP; Site: left forearm; em 11:20 Follow up: Response: No adverse reaction; Marked relief of symptoms em 10:24 Drug: SOLU-Medrol 125 mg Route: IVP; Site: left forearm; em 11:20 Follow up: Response: No adverse reaction; Marked relief of symptoms em Disposition: 07/10 08:52 Co-signature as Attending Physician, Judson Boyle MD I agree with the assessment and kdr plan of care. Disposition: 07/09/20 11:15 Discharged to Home. Impression: Allergic dermatitis of eyelid. - Condition is Stable. - Discharge Instructions: Allergies, Vscg-mb-[id number]. - Prescriptions for Pepcid 20 mg Oral Tablet - take 1 tablet by ORAL route every 12 hours for 5 days; 10 tablet. Prednisone 20 mg Oral Tablet - take 1 tablet by ORAL route once daily for 5 days; 5 tablet. - Medication Reconciliation Form, Thank You Letter, Antibiotic Education, Prescription Opioid Use form. - Follow up: Emergency Department; When: As needed; Reason: Worsening of condition. Follow up: Private Physician; When: 2 - 3 days; Reason: Recheck today's complaints, Continuance of care, Re-evaluation by your physician. Signatures: Nory Yost, PICKLE SORTER-C PICKLE SORTER-Ckb Judson Boyle MD MD kdr Munoz, Edgar, RN RN em Corrections: (The following items were deleted from the chart) 07/09 11:43 11:15 07/09/2020 11:15 Discharged to Home. Impression: Allergic dermatitis of eyelid. em Condition is Stable. Forms are Medication Reconciliation Form, Thank You Letter, Antibiotic Education, Prescription Opioid Use. Follow up: Emergency Department; When: As needed; Reason: Worsening of condition. Follow up: Private Physician; When: 2 - 3 days; Reason: Recheck today's complaints, Continuance of care, Re-evaluation by your physician. kb
[2020-07-09 11:53] VITALS: BP 108/81; O2SAT 95
[2020-07-09 11:54] VITALS: TEMP 98.1
== END 2020-07-09 11:43 | disposition home or self-care (01) ==
LOC: ER 09:50
DX: H01.119 Allergic dermatitis of unspecified eye, unspecified eyelid (principal); Z88.5 Allergy status to narcotic agent
CPT/HCPCS: 96361; 96375; 96374; 99284; J7030; J2930